=== PATIENT | male | born 2000 | race Caucasian/White ===

== ENCOUNTER 2024-12-06 06:44 | Emergency (ER) | payer MEDICAID, SELFPAY ==
--- NOTE | 2024-12-06 | ECG_ITS ---
Test Reason : CHEST PAIN Blood Pressure : */* mmHG Vent. Rate : 83 BPM Atrial Rate : 83 BPM P-R Int : 114 ms QRS Dur : 84 ms QT Int : 358 ms P-R-T Axes : 43 74 55 degrees QTcB Int : 420 ms Normal sinus rhythm with sinus arrhythmia Normal ECG When compared with ECG of 31-May-2019 23:08, No significant change was found Referred By: Generic ED Physician Electronically Signed By: CAROLINE BULL MD
[2024-12-06 07:15] VITALS: BP 133/89; PULSE 89; RESP 18; TEMP 36; O2SAT 98; BMI 35.5
[2024-12-06 07:46] LABS: MANUAL DIFF FLAG NO
[2024-12-06 07:48] LABS: Basophils Percent Auto 0.3 % (0-2); Eosinophils Absolute Auto 0.2 X10*3/uL (0.0-0.4); Eosinophils Percent Auto 1.8 % (0-4); Hematocrit 44.4 % (42.0-52.0); Hemoglobin 15.5 g/dl (14.0-18.0); Imm Gran Abs Auto 0.03 X10*3/uL (0.00-0.03); Imm Gran Pct Auto 0.3 % (0.0-0.4); Lymphocytes Absolute Auto 3.3 X10*3/uL (1.2-4.9); Lymphocytes Percent Auto 36.1 % (20-40); Mean Corpuscular HGB Conc 34.9 g/dl (31.0-36.0); Mean Corpuscular Hemoglobin 30.8 pg (27.0-33.0); Mean Corpuscular Volume 88.3 fL (80.0-98.0); Mean Platelet Volume 8.7 fL (9.4-12.4); Monocytes Absolute Auto 0.8 X10*3/uL (0.1-1.2); Monocytes Percent Auto 8.4 % (2-11); Neutrophils Absolute Auto 4.8 x10*3/uL (2.0-8.3); Neutrophils Percent Auto 53.1 % (45-73); Platelet Count 273 X10*3/uL (160-400); Red Blood Count 5.03 X10*6/uL (4.60-5.80); Red Cell Distribution Width 12.6 % (11.0-16.0)
--- OUTSIDE RECORDS SUMMARY | 2024-12-06 07:50 | XMS_ITS ---
Author Organization [facility] Address [address] [place], [place] [address] Care Team Providers Care Animal Care Technician Name Role Phone Amarjit Smith Primary Care Provider Alexa Valerio Unavailable [phone] REASON FOR VISIT office: f/u Medications Medication [...] Male Encounters Encounter Location Date Provider Diagnosis [address] [place], [place] [id number] 06/06/2024 Alexa Valerio Encounter for screening for COVID-19 Z11.52 Assessments Encounter Date Diagnosis (ICD Code) Assessment Notes Treatment Notes Treatment Clinical Notes 06/06/2024 Encounter for screening for COVID-19 [...] Notes * Calvin CARROLLDOB:2000 (24 yo M)Acc No.[id number]:06/06/2024 Progress Notes Patient:?Calvin CARROLL Provider:?JESUS Godfrey :2000???Age:23 Y???Sex:Male Stef e:06/06/2024 Address:[address] [place], [place] [address] Pcp:Amarjit Smith Subjective: * Chief Complaints: * ???1. Office: f/u. * HPI: ???General:? Symptom Screen: - Fever in the last [...] days? If so where and why?. * ROS:?No acute C/P no acute SOB, No problem with urine, No heartburn or abdominal pain. Endorses being able to climb one fight of stairs without stopping due to SOB, Mood: stable, appetite: good, sleeping well. Denies new skin rashes. * Medical History:? * Medications:?Taking BuPROPio n Hydrochloride XL 150 mg/24 hours tablet, extended [...] cap(s) orally once a day Objective: * Vitals:? Assessment: * Assessment: 1.?Encounter for screening f or COVID-19 - Z11.52 (Primary)??? Plan: * Treatment: * Images: Billing Information: * Visit Code:? * Procedure Codes:? Care Plan Details* * Electronic signature of Fermín Valerio on 12/06/2024 at 07:49 AM EST Sign off status: Pending * Provider:?JESUS Godfrey Date: ?06/06/2024 Generated for Aly engel/Constance/Ky on:?12/06/2024 07:49 AM EST
--- OUTSIDE RECORDS SUMMARY | 2024-12-06 07:50 | XMS_ITS ---
Author Organization [facility] Address [address], [place] [phone] Care Team Providers Care Laundry Operator Finishing Name Role Phone Amarjit Smith Primary Care Provider REASON FOR VISIT No Show Social History Sex Assigned At : Social History Observation Description Sex Assigned At Male Encounters Encounter Location Date Provider Diagnosis [facility] [address], [place] [phone] 08/17/2024 Amarjit Smith Plan Of Treatment No Information Progress Notes * Calvin BARRDOB:2000 (24 yo M)Acc No.[id number]:08/17/2024 Patient:?Calvin BARR :2000???Age:24 Y???Sex:Male Address:[address] [place] [address], [address], [place] [address] * true * Date:? Generated for Kevini maren/Constance/eTransmitting on:?12/06/2024 07:49 AM EST
--- OUTSIDE RECORDS SUMMARY | 2024-12-06 07:50 | XMS_ITS | Patient Health Record ---
Author Organization [facility] Address [address], [place] [phone] Care Team Providers Care Supervisor Transcribing Operators Name Role Phone Amarjit Smith Primary Care Provider [phone] Alexa Valerio Unavailable [phone] Allergies No Known Allergies Reason For Referral No Information Medications Medication SIG (Take, Route, Frequency, Duration) Notes Start Date End Date Status Abilify 10 mg 1 tab(s) orally once a day for 30 days Active cloNIDine 0.1 mg [...] once a day for 30 days Active Immunizations Vaccine Route Administration Date Status Comme nts Varicella Unknown 03/07/2021 Administered Social History Tobacco Use: Social History Observation [...] tobacco use and advised to quit: 06/24/2022 Problems Problem Type SNOMED Code ICD Code Onset Dates Problem Status W/U Status Risk Notes Problem Cocaine abuse with intoxication, unspecified (F14.129) Active confirmed Problem Tobacco user (256489014) Nicotine dependence, cigarettes, uncomplicated (F17.210) Active confirmed Problem Recurrent major depression in remission (23145452) Major depressive disorder, recurrent, in partial remission (F33.41) Active confirmed Problem Generalized anxiety disorder (93490762) Generalized anxiety disorder (F41.1) Active confirmed Problem Pervasive developmental disorder (disorder) (04384101) Autistic disorder (F84.0) Active confirmed Problem Attention deficit hyperactivity disorder, predominantly inattentive type (61681276) Attention-deficit hyperactivity disorder, predominantly inattentive type (F90.0) Active confirmed Problem Functional dyspepsia (1968501) Functional dyspepsia (K30) Active confirmed Problem Depression Screening (862368941) Encounter for screening for depression (Z13.31) Active confirmed Problem Body mass index 20-24 - normal (635318669) Body mass index [BMI] 22.0-22.9, adult (Z68.22) Active confirmed Problem Unsheltered homelessness (245878702899995) Unsheltered homelessness (Z59.02) Active confirmed Encounters Encounter Location Date Provider Diagnosis [facility] [address], [place] [phone] 04/30/2024 Amarjit Smith [facility] [address], [place] [phone] 08/17/2024 Amarjit Smith Assessments Encounter Date Diagnosis (ICD Code) Assessment Notes Treatment Notes Treatment Clinical Notes 06/06/2024 Other 08/17/2024 Other Plan Of Treatment No Information Insurance Providers Payer Name Payer Address Payer Phone Subscriber Number Group Number Insured Name Patient Relationship to Insured Coverage Start Date Coverage End Date [place] C3 [address] [place], [place] [id number] [phone] [id number] Calvin Barr - patient is the insured [place] [employer] [address] [place] [address] [phone] [id number] Momo, Calvin Self - patient is the insured 2 Medical (General) History Medical History History ICD Code Depression vs other Mood Disorder Anxiety Autism Cocaine abuse history Hospitalization History Reason Date(Month/Year) ER visits for CP and anxiety 02/22 Mental health - psych admits as a young teen, [facility] Respite see Hx
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
[2024-12-06 08:03] LABS: Alanine Aminotransferase 52 U/L (0-40); Albumin Level 4.4 g/dL (3.5-5.0); Alkaline Phosphatase 76 U/L (39-117); Anion Gap 11 (12-20); Aspartate Amino Transferase 26 U/L (5-37); Bilirubin Total 0.3 mg/dL (0.0-1.0); Blood Urea Nitrogen 13 mg/dL (9-16); Calcium 9.3 mg/dL (8.4-10.2); Carbon Dioxide 23 mmol/L (22-29); Chloride 109 mmol/L (96-108); Creatinine Clr Calc Pharmacy 208.1; Estimated Glomerular Filt Rate > 60; Glucose Random 112 mg/dL (60-115); Sodium 139 mmol/L (135-145); Total Protein 7.6 g/dL (6.5-8.0)
[2024-12-06 08:11] LABS: Troponin-I High Sensitivity < 2.7 ng/L (<3.5-35.0)
--- NOTE | 2024-12-06 08:32 | ED_ITS ---
HPI - Dental/Oral General Chief complaint: Dental/Oral Stated complaint: Dental Pain Time Seen by Provider: 12/06/24 07:42 Source: patient Mode of arrival: ambulatory Limitations: no limitations History of Present Illness ED Provider: DR. Curiel HPI Narrative: 24-year-old male otherwise healthy came in for evaluation of dental pain. Patient had a dental work on left upper 2nd molar tooth, filling and the crown fell off now patient is complaining of pain and left maxillary pain, no facial swelling, no fever, no chills, no drainage. Patient has been complaining of a intermittent left-sided chest pain for few months, no clear aggravating factor no clear relieving factor, not associated with exertion. Related Data Previous Rx's ?Medication ?Instructions ?Recorded amoxicillin 500 mg tablet 500 mg PO BID #14 tabs 12/06/24 Allergies Allergy/AdvReac Type Severity Reaction Status Date / Time No Known Allergies Allergy Verified 12/06/24 07:18 [No Known Allergies*] Review of Systems 2 Review of Systems: All other systems are reviewed and are negative Constitutional: Reports as per HPI and Reports no additional constitutional complaints Eyes: Reports as per HPI and Reports no additional eye complaints Reports system reviewed and no additional complaints, except as documented Cardiovascular: Reports as per HPI and Reports no additional cardiovascular complaints Respiratory: Reports as per HPI and Reports no additional respiratory complaints Gastrointestinal: Reports as per HPI and Reports no additional gastrointestinal complaints Genitourinary: Reports no additional female genitourinary complaints Musculoskeletal: Reports no additional musculoskeletal complaints Skin/Breast: Reports system reviewed and no additional complaints, except as docu Psychiatric: Reports no additional psychiatric complaints Endocrine: Reports no additional endocrine complaints Hematologic/Lymphatic: Reports no additional hematologic/lymphatic complaints Allergic/Immunologic: Reports no additional allergic/immunologic complaints Reports system reviewed and no additional complaints, except as documented and Reports Abnormal speech present [facility] Social History Social History Advance Directives: No Advance Directives Information Provided: Yes Physical Exam 2 Vital Signs: Vital Signs: Last Vital Signs Temp 96.8 F 12/06/24 07:15 Pulse 89 12/06/24 07:15 Resp 18 12/06/24 07:15 BP 133/89 12/06/24 07:15 Pulse Ox 98 12/06/24 07:15 O2 Del Method Room Air 12/06/24 07:15 BMI result Body Mass Index 35.5 Vital signs have been reviewed and appear to be correct. Blood pressure elevated. Heart rate normal. Respiratory rate normal. Temperature normal. Oxygen saturation normal. Appearance: Alert. Oriented X3. No acute distress. Head: Normal external exam. Normocephalic. Atraumatic. No Zhu signs noted. No raccoon eyes noted. Dental exam: Left upper 2nd molar tooth decay, tenderness over the tooth, gum around the tooth is nontender, no fluctuation, no discharge. Eyes: PERRLA. EOMI. Conjunctiva and sclera normal. Eyelids normal. ENT: TM's Normal. Pharynx normal. Uvula midline. Moist mucous membranes. No trismus noted. No drooling noted. No muffled voice noted. Neck: Normal inspection. Neck supple. FROM. No adenopathy. Thyroid Normal. No meningeal signs. No neck mass noted. CVS: Normal heart rate and rhythm. Heart sound normal. No murmurs noted. Pulses normal throughout. Respiratory: No respiratory distress. Painless inspiration. Breath sounds normal. No wheezes/rales/rhonchi noted. Chest nontender. No accessory muscle usage noted or decreased air movement noted. Abdomen: Soft and nontender. Bowel sounds normal in all 4 quadrants. No distention noted. No organomegaly noted. No visible injury noted. Back: No CVA tenderness. Full range of motion noted. Skin: Skin warm and dry. Normal skin color. Normal skin turgor. No rashes/lesions/lacerations noted. Extremities: No lower extremity edema. Extremities exhibit normal range of motion. Extremities nontender. Neuro: Oriented X 3. Cranial nerve exam: II-XII are grossly intact No motor deficit. No sensory deficit. Reflexes normal. Course Reevaluation(s) Reevaluation #1: Dental infection with no abscess or facial cellulitis. Will start on amoxicillin. Chest pain, patient with HEART SCORE OF 0. Time: 08:37 Medical Decision Making Differential Diagnosis Differential Diagnoses: The differential diagnosis associated with the presentation includes (ACS, dental infection, dental abscess, facial cellulitis.) Admission/Observation Consideration of admission/observation: Escalation of care including admission/observation considered Lab Data MDM Lab Attestation statement: I reviewed the patient's lab results. 12/06/24 07:40 12/06/24 07:40 Labs: Lab Results 12/06/24 Range/Units 07:40 WBC 9.0 (4.8-10.8) X10*3/uL RBC 5.03 (4.60-5.80) X10*6/uL Hgb 15.5 (14.0-18.0) g/dl Hct 44.4 (42.0-52.0) % MCV 88.3 (80.0-98.0) fL MCH 30.8 (27.0-33.0) pg MCHC 34.9 (31.0-36.0) g/dl RDW 12.6 (11.0-16.0) % Plt Count 273 (160-400) X10*3/uL MPV 8.7 L (9.4-12.4) fL Immature Gran % (Auto) 0.3 (0.0-0.4) % Neut % (Auto) 53.1 (45-73) % Lymph % (Auto) 36.1 (20-40) % Bremer % (Auto) 8.4 (2-11) % Eos % (Auto) 1.8 (0-4) % Baso % (Auto) 0.3 (0-2) % Lymph # (Auto) 3.3 (1.2-4.9) X10*3/uL Bremer # (Auto) 0.8 (0.1-1.2) X10*3/uL Eos # (Auto) 0.2 (0.0-0.4) X10*3/uL Baso # (Auto) 0.0 (0.0-0.2) X10*3/uL Abs Immat Gran (auto) 0.03 (0.00-0.03) X10*3/uL Absolute Neuts (auto) 4.8 (2.0-8.3) x10*3/uL Absolute Nucleated RBC 0.000 (0.0-0.012) X10*3/uL Nucleated RBC % (auto) 0.0 (0.0-0.2) /100WBC Sodium 139 (135-145) mmol/L Potassium 4.0 (3.3-5.1) mmol/L Chloride 109 H (96-108) mmol/L Carbon Dioxide 23 (22-29) mmol/L Anion Gap 11 L (12-20) BUN 13 (9-16) mg/dL Creatinine 0.82 (0.5-1.4) mg/dL Estim Creat Clear Calc 208.1 Estimated GFR > 60 Random Glucose 112 (60-115) mg/dL Calcium 9.3 (8.4-10.2) mg/dL Total Bilirubin 0.3 (0.0-1.0) mg/dL AST 26 (5-37) U/L ALT 52 H (0-40) U/L Alkaline Phosphatase 76 (39-117) U/L Troponin I High Sens < 2.7 (<3.5-35.0) ng/L Total Protein 7.6 (6.5-8.0) g/dL Albumin 4.4 (3.5-5.0) g/dL Discharge Plan Discharge Clinical Impression: Toothache, Dental infection, Non-cardiac chest pain Patient Disposition: Home, Self-Care Instructions: Chest Pain (ED), Toothache (ED) Additional Instructions: Please contact your dentist and make an appointment. Prescriptions: New amoxicillin 500 mg tablet 500 mg PO BID Qty: 14 0RF Print Language: Faroese
[2024-12-06 09:05] VITALS: BP 133/89; PULSE 89; RESP 18; TEMP 36; O2SAT 98
[2024-12-06] MEDS: Amoxicillin 500 MG CAPSULE PO (09:06)
== END 2024-12-06 09:10 | disposition home or self-care (01) ==
PROVIDERS: Emergency Provider Emergency Medicine
DX: K04.7 Periapical abscess without sinus (principal); R07.89 Other chest pain
CPT/HCPCS: 36415; 80053; 84484; 85025; 93005; 99282; 99283

== ENCOUNTER → 2024-12-06 07:35 | Outpatient (BNV) | payer MEDICAID, SELFPAY | PROVIDERS: Emergency Provider Emergency Medicine; Visit Provider Internal Medicine Cardiovascular Disease | DX: R07.9 Chest pain, unspecified (principal) | CPT/HCPCS: 93010 ==

== ENCOUNTER 2024-12-26 07:31 | Emergency (ER) | payer MEDICAID, SELFPAY ==
--- NOTE | ~2024-12-26 | XR_ITS ---
EXAMINATION: XR CHEST CLINICAL INFORMATION: chest pain COMPARISON: None available. TECHNIQUE: 2 views of the chest were obtained. FINDINGS: No consolidation, pleural effusion or pneumothorax. No hyperinflation. Cardiomediastinal silhouette is normal. Osseous structures are intact. XR/XR chest 2V IMPRESSION: No acute airspace disease. Electronically signed by: Tommy Angelo MD 12/26/2024 08:00 AM EDT
--- NOTE | 2024-12-26 07:37 | ECG_ITS ---
Test Reason : CHEST PAIN Blood Pressure : */* mmHG Vent. Rate : 111 BPM Atrial Rate : 111 BPM P-R Int : 136 ms QRS Dur : 92 ms QT Int : 326 ms P-R-T Axes : 52 91 38 degrees QTcB Int : 443 ms Sinus tachycardia Rightward axis Possible Anterior infarct , age undetermined Abnormal ECG When compared with ECG of 06-Dec-2024 07:35, No significant change was found Referred By: Belinda Mayo Electronically Signed By: CAROLINE BULL MD
[2024-12-26 07:39] VITALS: BP 155/97; PULSE 127; O2SAT 96
[2024-12-26 07:44] VITALS: BP 149/94; PULSE 109; RESP 20; TEMP 36.5; O2SAT 99; BMI 32.9
--- NOTE | 2024-12-26 07:55 | ED_ITS ---
HPI - Chest Pain General Chief Complaint: Dizziness Stated Complaint: stabbing chest pain, pt feels poss panic attack Time Seen by Provider: 12/26/24 07:33 Source: patient and old records reviewed Mode of arrival: ambulatory Limitations: no limitations History of Present Illness ED Provider: MEÑO VÁSQUEZ narrative: 24 yo male with PMH of anxiety who takes no medications but has smoked cigarettes for 10 years he comes in today reporting many months of intermittent sharp left chest pain that happens at rest. Not fully related to exertion. He denies travel/procedures. He has no fevers or cough. This AM it happened again when drinking coffee. He felt palpitations, dizzy and the pain. He has no known CAD or VTE. He takes nothing for anxiety and manages it at home. He has not gone to the doctor for this in the past. MD complaint: chest pain Onset (ago): month(s) Timing of current episode: episodic Prior episodes: Yes Onset: during rest Pain location: substernal Pain radiation: none Severity: moderate Quality: sharp and shooting Relieving factors: nothing Exacerbating factors: nothing Context: other Associated symptoms: palpitations Treatment prior to arrival: none Related Data Previous Rx's ?Medication ?Instructions ?Recorded amoxicillin 500 mg tablet 500 mg PO BID #14 tabs 12/06/24 Allergies Allergy/AdvReac Type Severity Reaction Status Date / Time No Known Allergies Allergy Verified 12/26/24 07:48 [No Known Allergies*] Review of Systems 2 Review of Systems: Constitutional : No Weight loss, No Fever, No Chills ENT/Mouth : No sore throat, No Rhinorrhea Eyes: No Eye Pain, No Swelling Cardiovascular : pos Chest Pain, no SOB, no Dyspnea on Exertion, No Orthopnea, No Edema, pos Palpitations Respiratory : No Cough, No Sputum Gastrointestinal : no Nausea, No Vomiting, No Diarrhea, No abdominal Pain, No Hematochezia, No Melena Genitourinary : No Dysuria, No Urinary Frequency Musculoskeletal : No joint pain, No Myalgias, No Joint Swelling Skin : No Skin Lesions, No rash Neuro : No Weakness, No Numbness, pos Dizziness, No Headache Psych : No Anxiety/Panic, No Depression Heme/Lymph: No Bruising, No Lymphadenopathy Endocrine : No Polyuria, No Polydipsia All other systems reviewed and are negative PMFSH Past Medical History Attestation statement: The following information was validated with the patient. Source: old records reviewed Medical History Anxiety Social History Social History (Updated 12/26/24 @ 07:58 by Belinda Mayo DO) Patient Tobacco Use Status: Current everyday Tobacco user Smoked in Last 30 Days: Yes Use of substances other than those prescribed or required for medical reasons: No Advance Directives: No Advance Directives Information Provided: Yes Physical Exam 2 Vital Signs: Vital Signs: Last Vital Signs Temp 97.7 F 12/26/24 07:44 Pulse 109 H 12/26/24 07:44 Resp 20 12/26/24 07:44 BP 149/94 H 12/26/24 07:44 Pulse Ox 99 12/26/24 07:44 O2 Del Method Room Air 12/26/24 07:44 BMI result Body Mass Index 32.9 Appearance: Alert. Oriented X3. No acute distress. Eyes: Pupils equal, round and reactive to light. ENT: Pharynx normal. Neck: Normal inspection. Neck supple. CVS: tachycardic heart rate and rhythm. Pulses normal. Respiratory: No respiratory distress. Breath sounds normal. Abdomen: Soft and nontender. Skin: Skin warm and dry. Normal skin color. Normal skin turgor. Extremities: No lower extremity edema. No calf ttp Neuro: Oriented X 3. No motor deficit. No sensory deficit. CN2-12 intact Medications Administered Discontinued Medications Generic Name Dose Route Start Last Admin Trade Name Dannyq PRN Reason Stop Dose Admin Acetaminophen 650 mg 12/26/24 08:26 12/26/24 08:45 Acetaminophen 325 Mg Tablet PO 12/26/24 08:27 650 mg ONCE ONE Administration Medical Decision Making Medical Decision Making MDM Narrative: 24 yo male with PMH of anxiety here with c/o sharp left chest pain but no associated dyspnea - he c/o palpitations, dizziness as well. At this time he has no hx of CAD or VTE. He has had this on and off for months doubt dissection. Will obtain basic labs, lytes, trop x 1, ddimer and CXR. Suspect atypical chest pain, anxiety, low prob VTE, low susp for ACS, no preceding viral illness to suggest endocarditis. He has had chronic tooth pain and cleared by dentist who gives him amoxicillin clinically on exam no signs of infection, no IVDA Differential Diagnosis Differential Diagnoses: The differential diagnosis associated with the presentation includes atypical chest pain, anxiety, pericarditis, low prob VTE Admission/Observation Consideration of admission/observation: Escalation of care including admission/observation considered ddimer negative, trop flat, CXR negative at this time stable for DC Lab Data [facility] Lab Attestation statement: I reviewed the patient's lab results. 12/26/24 08:03 12/26/24 08:03 Labs: Lab Results 12/26/24 Range/Units 08:03 WBC 10.8 (4.8-10.8) X10*3/uL RBC 4.98 (4.60-5.80) X10*6/uL Hgb 15.3 (14.0-18.0) g/dl Hct 43.7 (42.0-52.0) % MCV 87.8 (80.0-98.0) fL MCH 30.7 (27.0-33.0) pg MCHC 35.0 (31.0-36.0) g/dl RDW 12.7 (11.0-16.0) % Plt Count 284 (160-400) X10*3/uL MPV 8.8 L (9.4-12.4) fL Immature Gran % (Auto) 0.4 (0.0-0.4) % Neut % (Auto) 56.9 (45-73) % Lymph % (Auto) 32.3 (20-40) % Mcdonough % (Auto) 8.4 (2-11) % Eos % (Auto) 1.7 (0-4) % Baso % (Auto) 0.3 (0-2) % Lymph # (Auto) 3.5 (1.2-4.9) X10*3/uL Mcdonough # (Auto) 0.9 (0.1-1.2) X10*3/uL Eos # (Auto) 0.2 (0.0-0.4) X10*3/uL Baso # (Auto) 0.0 (0.0-0.2) X10*3/uL Abs Immat Gran (auto) 0.04 H (0.00-0.03) X10*3/uL Absolute Neuts (auto) 6.1 (2.0-8.3) x10*3/uL Absolute Nucleated RBC 0.000 (0.0-0.012) X10*3/uL Nucleated RBC % (auto) 0.0 (0.0-0.2) /100WBC D-Dimer High Sensitivty < 150 NG/ML Sodium 139 (135-145) mmol/L Potassium 4.1 (3.3-5.1) mmol/L Chloride 109 H (96-108) mmol/L Carbon Dioxide 24 (22-29) mmol/L Anion Gap 10 L (12-20) BUN 13 (9-16) mg/dL Creatinine 0.96 (0.5-1.4) mg/dL Estim Creat Clear Calc 171.1 Estimated GFR > 60 Random Glucose 122 H (60-115) mg/dL Calcium 9.2 (8.4-10.2) mg/dL Magnesium 1.9 (1.6-2.6) mg/dL Total Bilirubin 0.5 (0.0-1.0) mg/dL Direct Bilirubin 0.1 (0.0-0.5) mg/dL AST 28 (5-37) U/L ALT 53 H (0-40) U/L Alkaline Phosphatase 70 (39-117) U/L Troponin I High Sens < 2.7 (<3.5-35.0) ng/L Total Protein 7.4 (6.5-8.0) g/dL Albumin 4.4 (3.5-5.0) g/dL Lipase 18 (8-78) U/L Independent Interpretation I performed an independent interpretation of an: EKG and Plain X-Ray (normal ) Interpretation: Rate: 111 Rhythm: sinus tach [place]: rightward Normal P waves. Normal ZEV. Normal QRS complex. ST T wave : no DONALDO, normal qTC: 443 prior studies: no acute ischemia The study has been interpreted contemporaneously by me. . Radiology Impression Discussion of test interpretation with radiology: I have reviewed the radiologist's reading. Independent Historian Clinical information obtained from an independent historian. History obtained from or confirmed by: EMS Prescription Management I considered prescription management with: Other Discharge Plan Discharge Clinical Impression: Atypical chest pain Patient Disposition: Home, Self-Care Instructions: Chest Pain (ED) Additional Instructions: labs reassuring heart tests normal ddimer normal no signs of clot chest xray normal rest and stay hydrated please follow up with a primary care doctor continue to try to quit smoking Prescriptions: No Action amoxicillin 500 mg tablet 500 mg PO BID Qty: 14 0RF Stand Alone Forms: Work/School Release Print Language: Thai
[2024-12-26 08:11] LABS: MANUAL DIFF FLAG NO
[2024-12-26 08:14] LABS: Basophils Percent Auto 0.3 % (0-2); Eosinophils Absolute Auto 0.2 X10*3/uL (0.0-0.4); Eosinophils Percent Auto 1.7 % (0-4); Hematocrit 43.7 % (42.0-52.0); Hemoglobin 15.3 g/dl (14.0-18.0); Imm Gran Abs Auto 0.04 X10*3/uL (0.00-0.03); Imm Gran Pct Auto 0.4 % (0.0-0.4); Lymphocytes Absolute Auto 3.5 X10*3/uL (1.2-4.9); Lymphocytes Percent Auto 32.3 % (20-40); Mean Corpuscular Hemoglobin 30.7 pg (27.0-33.0); Mean Corpuscular Volume 87.8 fL (80.0-98.0); Mean Platelet Volume 8.8 fL (9.4-12.4); Monocytes Absolute Auto 0.9 X10*3/uL (0.1-1.2); Monocytes Percent Auto 8.4 % (2-11); Neutrophils Absolute Auto 6.1 x10*3/uL (2.0-8.3); Neutrophils Percent Auto 56.9 % (45-73); Platelet Count 284 X10*3/uL (160-400); Red Blood Count 4.98 X10*6/uL (4.60-5.80); Red Cell Distribution Width 12.7 % (11.0-16.0); White Blood Count 10.8 X10*3/uL (4.8-10.8)
[2024-12-26 08:23] LABS: D Dimer High Sensitivity < 150 NG/ML
[2024-12-26 08:33] LABS: Alanine Aminotransferase 53 U/L (0-40); Albumin Level 4.4 g/dL (3.5-5.0); Alkaline Phosphatase 70 U/L (39-117); Anion Gap 10 (12-20); Aspartate Amino Transferase 28 U/L (5-37); Bilirubin Direct 0.1 mg/dL (0.0-0.5); Bilirubin Total 0.5 mg/dL (0.0-1.0); Blood Urea Nitrogen 13 mg/dL (9-16); Calcium 9.2 mg/dL (8.4-10.2); Carbon Dioxide 24 mmol/L (22-29); Chloride 109 mmol/L (96-108); Creatinine Clr Calc Pharmacy 171.1; Estimated Glomerular Filt Rate > 60; Glucose Random 122 mg/dL (60-115); Lipase 18 U/L (8-78); Magnesium 1.9 mg/dL (1.6-2.6); Potassium 4.1 mmol/L (3.3-5.1); Sodium 139 mmol/L (135-145); Total Protein 7.4 g/dL (6.5-8.0)
[2024-12-26] MEDS: Acetaminophen 325 MG TABLET 650 MG PO (08:45)
[2024-12-26 08:47] LABS: Troponin-I High Sensitivity < 2.7 ng/L (<3.5-35.0)
[2024-12-26 09:23] VITALS: BP 149/94; PULSE 109; RESP 20; TEMP 36.5; O2SAT 99
== END 2024-12-26 09:25 | disposition home or self-care (01) ==
PROVIDERS: Emergency Provider Emergency Medicine
DX: R07.89 Other chest pain (principal); F17.210 Nicotine dependence, cigarettes, uncomplicated
CPT/HCPCS: 36415; 71046; 80048; 80076; 83690; 83735; 84484; 85025; 85379; 93005; 99283; 99284

== ENCOUNTER → 2024-12-26 07:37 | Outpatient (BNV) | payer MEDICAID, SELFPAY | PROVIDERS: Emergency Provider Emergency Medicine; Visit Provider Internal Medicine Cardiovascular Disease | DX: R00.0 Tachycardia, unspecified (principal) | CPT/HCPCS: 93010 ==

== ENCOUNTER → 2024-12-26 07:46 | Outpatient (BNV) | payer MEDICAID, SELFPAY | PROVIDERS: Emergency Provider Emergency Medicine; Visit Provider Radiology Diagnostic Radiology | DX: R07.9 Chest pain, unspecified (principal) | CPT/HCPCS: 71046 ==

== ENCOUNTER 2025-01-23 09:08 | Emergency (ER) | payer MEDICAID, SELFPAY ==
--- NOTE | ~2025-01-23 | CT_ITS ---
EXAMINATION: CT HEAD WITHOUT CONTRAST CLINICAL INFORMATION: Severe right-sided headache. COMPARISON: None available. TECHNIQUE: Contiguous axial imaging was performed from the skull base to vertex without intravenous administration of contrast. This CT examination was performed using dose optimization techniques as appropriate, variously including the following: *Automated exposure control *Adjustment of mA and/or kV according to patient size (this includes techniques or standardized protocols for targeted exams where dose is matched to indication/reason for exam; i.e. extremities or head) *Use of iterative reconstruction technique FINDINGS: There is no evidence of intracranial hemorrhage or extra-axial fluid collection. There is no mass effect, or edema. No CT evidence of acute territorial infarct. Ventricles, sulci, and cisterns are normal in size and configuration for patient age. No hydrocephalus. No midline shift. Negative hyperdense MCA sign. Negative insular ribbon sign. No white matter abnormalities. Normal pituitary. Globes and orbital contents image normally. No extracranial soft tissue abnormalities. The paranasal sinuses, mastoid air cells, and tympanic cavities are normally aerated. No suspicious bony abnormalities. There are no acute fractures evident. CT/CT head/brain wo IV con IMPRESSION: No acute intracranial abnormality. Normal examination. Electronically signed by: Calvin Valle MD 01/23/2025 10:30 AM EDT
[2025-01-23 09:12] VITALS: BP 152/90; PULSE 97; O2SAT 100
[2025-01-23 09:14] VITALS: BP 137/87; PULSE 80; RESP 18; TEMP 36.9; O2SAT 95; BMI 33.2
--- NOTE | 2025-01-23 09:32 | ED_ITS ---
HPI - General Adult General Chief complaint: Headache Stated complaint: R SIDED ZULETA X1H PER EMS Time Seen by Provider: 01/23/25 09:32 Source: patient, EMS, RN notes reviewed and old records reviewed Mode of arrival: EMS Limitations: no limitations History of Present Illness ED Provider: Kim HPI narrative: Patient is a 24-year-old male with history of anxiety presenting to the emergenc y department with complaint of severe right-sided headache which began approximately an hour and a half prior to arrival. States that he worked an overnight shift last night, has not slept yet. Was going to take ibuprofen at home but EMS advised against this. Associated photophobia. Denies blurred vision, double vision or other visual changes. Denies nausea or vomiting. Denies any neck or back pain. Denies history of chronic headaches or migraines. Denies fall or other trauma. He is not anticoagulated. complaint: Headache Onset (ago): hour(s) Location: head Radiation: non-radiation Severity: severe Severity scale (1-10): 10 Quality: aching Related Data Previous Rx's ?Medication ?Instructions ?Recorded amoxicillin 500 mg tablet 500 mg PO BID #14 tabs 12/06/24 Allergies Allergy/AdvReac Type Severity Reaction Status Date / Time No Known Allergies Allergy Verified 01/23/25 09:20 [No Known Allergies*] Review of Systems Review of Systems: As per HPI Yes all other systems are reviewed and are negative Constitutional: Constitutional: Reports as per HPI [facility] Past Medical History Medical History Anxiety Social History Social History (Updated 12/26/24 @ 07:58 by Belinda Mayo DO) Patient Tobacco Use Status: Current everyday Tobacco user Do you have a plan to hurt others: No Plan Physical Exam ED Vital Signs: Vital Signs - 24 hr 01/23/25 09:14 01/23/25 12:27 Temperature 98.4 F 97.9 F Pulse Rate 80 84 Respiratory Rate 18 14 Blood Pressure 137/87 123/79 Pulse Oximetry 95 96 Oxygen Delivery Method Room Air Room Air BMI result Body Mass Index 33.2 Vital signs have been reviewed and appear to be correct. Blood pressure normal. Heart rate normal. Respiratory rate normal. Temperature normal. Oxygen saturation normal. Const General: cooperative, healthy appearing and no acute distress Orientation/consciousness: oriented to person, oriented to place, oriented to time and patient oriented x3 Limitations: no limitations HENMT Head: Yes normocephalic and Yes atraumatic Ears: external ears normal General nose exam: Normal external nose present Face and sinus: Yes face symmetric Mouth: oropharynx normal and moist mucous membranes Throat: Yes uvula midline Eyes Pupils: Equal, round and reactive pupils present EOM: EOMs intact bilaterally Neck Neck: Yes normal visual inspection and Yes supple Resp Effort & Inspection: normal respiratory effort and able to speak in complete sentences Auscultation: clear to auscultation bilaterally Cardio Rate: regular rate Rhythm: regular rhythm Heart sounds: S1 normal heart sound present and S2 normal heart sound present GI Palpation (GI): Soft to palpation and nontender Auscultation: normoactive bowel sounds General: Yes no CVA tenderness Back/Spine/Pelvis Back: no CVA tenderness Skin General skin exam: elasticity normal and turgor normal Neuro General: oriented to person, oriented to place, oriented to time, patient oriented x3, gait normal, tone normal, moves all extremities, Normal light touch and pain sensation, no focal motor deficits, CN's II-XI intact bilaterally and deep tendon reflexes 2+ bilaterally Cranial nerves: Yes Equal, round and reactive pupils present Cognition (Neuro): normal cognition Motor exam (neuro): 5/5 motor strength present throughout, Normal motor muscle tone present throughout and Motor abnormalities not present Extrem General: Yes full ROM, Yes no pedal edema and Yes no calf tenderness Psych Mental Status: mental status grossly normal Affect: normal affect Thought process: Normal thought process present Medications Administered Discontinued Medications Generic Name Dose Route Start Last Admin Trade Name Fanny PRN Reason Stop Dose Admin Diphenhydramine HCl 25 mg 01/23/25 09:35 01/23/25 09:54 Diphenhydramine Hcl 50 Mg/Ml Vial IVPUSH 01/23/25 09:36 25 mg ONCE ONE Administration Sodium Chloride 1,000 mls @ 999 mls/hr 01/23/25 09:45 01/23/25 09:54 Ns IV 01/23/25 10:45 999 mls/hr .Q1H1M JOSE DAVID Administration Ketorolac Tromethamine 15 mg 01/23/25 09:35 01/23/25 09:54 Ketorolac Tromethamine 15 Mg/Ml Vial IVPUSH 01/23/25 09:36 15 mg ONCE ONE Administration Metoclopramide HCl 10 mg 01/23/25 09:35 01/23/25 09:54 Metoclopramide Hcl 10 Mg/2 Ml Vial IVPUSH 01/23/25 09:36 10 mg ONCE ONE Administration Medical Decision Making Medical Decision Making [facility] Narrative: Patient is a 24-year-old male with history of anxiety presenting to the emergency department with complaint of severe right-sided headache which began approximately an hour and a half prior to arrival. On exam patient is awake, A+Ox3, VS WNL, afebrile, normal neurological exam without focal deficits, physical exam findings as above. Given reported symptoms and physical exam findings, initial differential includes but is not limited to tension headache, migraine. Do not suspect ICH/SAH, acute glaucoma, carotid artery dissection, CO poisoning, encephalitis, meningitis, preeclampsia, pseudotumor, temporal arteritis/giant cell arteritis. Given that patient denies history of headaches in the past will obtain CT head. CT notable for no acute abnormalities. My interpretation is in agreement with the radiologist's interpretation. Results discussed with patient and all questions answered. Patient reports improvement in pain after receiving medications in the ED. advised he continue using Tylenol, ibuprofen, Excedrin, etc. as needed for headache at home. Follow up with primary care provider as needed. Return precautions discussed at bedside. Patient verbalized understanding of and agreement with plan. Differential Diagnosis Differential Diagnoses: The differential diagnosis associated with the presentation includes As per [facility] Admission/Observation Consideration of admission/observation: Escalation of care including admission/observation considered Patient would have been admitted to the hospital had their work up had any findings where hospital admission was appropriate and their clinical presentation warranted hospital admission. Independent Interpretation I performed an independent interpretation of an: CT Scan Interpretation: No acute abnormalities CT head. Radiology Impression Discussion of test interpretation with radiology: I have reviewed the radiologist's reading. Radiologist Impression: CT/CT head/brain wo IV con IMPRESSION: No acute intracranial abnormality. Normal examination. External Record Review External record reviewed: Inpatient record, Office record and Outpatient record Discharge Plan Discharge Clinical Impression: Headache Patient Disposition: Home, Self-Care Instructions: Acute Headache (DC) Additional Instructions: You have been evaluated in the emergency department today for headache. Your evaluation did not show evidence of medical conditions requiring emergent intervention at this time, and your pain improved with medication in the ED. We recommend you take 600 mg ibuprofen every 6 hours or Tylenol 650 mg every 6 hours as needed for pain. If needed, you can alternate these medications so that you take 1 medication every 3 hours. For instance, at noon take ibuprofen, then at 3:00 p.m. take Tylenol, then at 6:00 p.m. take ibuprofen. Please follow-up with your primary care provider within 2 days. Return to the emergency department if you experience worsening or uncontrolled pain, vision changes, recurrent vomiting, difficulty with normal activities, abnormal behavior, difficulty walking, numbness, weakness, or any other concerning symptoms. Prescriptions: No Action amoxicillin 500 mg tablet 500 mg PO BID Qty: 14 0RF Print Language: Spanish
[2025-01-23] MEDS: Metoclopramide HCl 10 MG/2 ML VIAL IVPUSH (09:54)
[2025-01-23] MEDS: diphenhydrAMINE HCL 50 MG/ML VIAL 25 MG IVPUSH (09:54)
[2025-01-23] MEDS: Ketorolac Tromethamine 15 MG/ML VIAL IVPUSH (09:54)
[2025-01-23] MEDS: 0.9 % Sodium Chloride 1,000 ML 999 ML IV (09:54)
--- NOTE | 2025-01-23 10:00 | PC.NURSE ---
IV established, medicated per the MAR with fluids infusing. in ct scan
--- NOTE | 2025-01-23 12:15 | PC.NURSE ---
patient appears to be sleeping at this time with even and unlabored respirations
[2025-01-23 12:27] VITALS: BP 123/79; PULSE 84; RESP 14; TEMP 36.6; O2SAT 96
[2025-01-23 12:45] VITALS: BP 123/79; PULSE 84; RESP 14; TEMP 36.6; O2SAT 96
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
--- OUTSIDE RECORDS SUMMARY | 2025-01-23 14:59 | XMS_ITS ---
Author Organization [facility] Address [address], [place] [id number] Care Team Providers Care Aircraft Restorer Name Role Phone Amarjit Smith Primary Care Provider Alexa Valerio Unavailable [phone] REASON FOR VISIT office: f/u Medications Medication [...] Male Encounters Encounter Location Date Provider Diagnosis [address] [place], [place] [phone] 06/06/2024 Alexa Valerio Encounter for screening for [...] Notes * Calvin CARROLLDOB:2000 (24 yo M)Acc No.[id number]:06/06/2024 Progress Notes Patient:?Calvin CARROLL Provider:?JESUS Godfrey :2000???Age:23 Y???Sex:Male Stef e:06/06/2024 Address:[address] [place], [place] [phone] Pcp:Amarjit Smith Subjective: * Chief Complaints: * [...] * Electronic signature of Fermín Valerio on 01/23/2025 at 02:58 PM EDT Sign off status: Pending * Provider:?JESUS Godfrey Date: ?06/06/2024 Generated for Aly engel/Constance/Ky on:?01/23/2025 02:58 PM EDT
== END 2025-01-23 12:46 | disposition home or self-care (01) ==
PROVIDERS: Emergency Provider Emergency Medicine
DX: R51.9 Headache, unspecified (principal)
CPT/HCPCS: 70450; 96374; 96375; 99284; 99285; J1200; J1885; J2765

== ENCOUNTER → 2025-01-23 09:35 | Outpatient (BNV) | payer MEDICAID, SELFPAY | PROVIDERS: Emergency Provider Emergency Medicine; Visit Provider Radiology Diagnostic Radiology | DX: R51.9 Headache, unspecified (principal) | CPT/HCPCS: 70450 ==

== ENCOUNTER 2025-01-27 06:47 | Emergency (ER) | payer MEDICAID, SELFPAY ==
[2025-01-27 06:50] VITALS: BP 148/103; PULSE 100; RESP 19; TEMP 36.6; O2SAT 96; BMI 31.7
--- NOTE | 2025-01-27 08:50 | ED_ITS ---
HPI - Headache General Chief Complaint: Headache Stated Complaint: headache with pressure Time Seen by Provider: 01/27/25 08:02 Source: patient Mode of arrival: ambulatory Limitations: no limitations History of Present Illness ED Provider: terrence storey np HPI Narrative: Patient is a 24-year-old male who presents emergency department for evaluation of a right posterior headache. He reports onset 3-4 days ago. States he came to the emergency department had a head CT done which showed no abnormal findings. He has tried Tylenol at home but his symptoms have persisted which prompted his return today. He denies any precipitating injury. Denies any history of migraine headaches. He also states that he has experienced pain to a few of his right upper molars. He has been told in the past from dental providers that there are numerous cavities he unfortunately has not however had any recent appointment to address these. Denies any swelling to the face, foul taste in the mouth. Denies any red flag symptoms including fevers, chills, neck stiffness, malaise, aphasia, weakness, poor coordination, descriptors such as ?the worst headache ever ?or ?thunderclap?, or painful temporal region. Denies dizziness, lightheadedness, vision changes, URI symptoms, chest pain, shortness of breath, numbness or tingling of the extremities. Related Data Previous Rx's ?Medication ?Instructions ?Recorded amoxicillin 500 mg tablet 500 mg PO BID #14 tabs 12/06/24 ibuprofen 600 mg tablet 600 mg PO Q8H PRN pain #30 tabs 01/27/25 Allergies Allergy/AdvReac Type Severity Reaction Status Date / Time No Known Allergies Allergy Verified 01/27/25 06:52 [No Known Allergies*] Review of Systems Review of Systems: Yes all other systems are reviewed and are negative [facility] Past Medical History Attestation statement: The following information was validated with the patient. Source: old records reviewed Medical History Anxiety Social History Social History (Updated 12/26/24 @ 07:58 by Belinda Mayo DO) Patient Tobacco Use Status: Current everyday Tobacco user Advance Directives: No Advance Directives Information Provided: No Do you have a plan to hurt others: No Plan Physical Exam Vital Signs: Vital Signs: Last Vital Signs Temp 98 F 01/27/25 06:50 Pulse 100 04/27/25 06:50 Resp 19 01/27/25 06:50 BP 148/103 H 01/27/25 06:50 Pulse Ox 96 01/27/25 06:50 O2 Del Method Room Air 01/27/25 06:50 BMI result Body Mass Index 31.7 Appearance: Alert.?Oriented to person, place and time. No acute distress.?Normal affect. Head: Normocephalic, atraumatic Eyes: Pupils equal, round and reactive to light. EOMI. No nystagmus. No ptosis. No tenderness to palpation over the temporal region. ENT: External auditory canal normal tympanic membrane pearly ayala and intact bilaterally. Oropharynx normal. Neck: Normal inspection.? Neck supple. No nuchal rigidity. CVS: Heart sounds normal. Normal heart rate and rhythm.? Pulses normal.?? Respiratory: No respiratory distress.? Lung sounds clear to auscultation bilaterally?? Abdomen: Soft and non-tender. Normoactive bowel sounds. ?? Skin: Skin warm and dry.? Normal skin color.? ?? Extremities: No lower extremity edema.? Neuro: Moves all extremities spontaneously. Sensation intact bilaterally. CN II- XII intact. No focal neuro deficits. Ambulatory with steady gait. Course Reevaluation(s) Reevaluation #1: Patient with a history of recurrent and or similar headache, there is no substantial change to typical headache pattern, there are no red flag symptoms, no focal neurological deficits, no high risk comorbidities, at this time feel that patient is stable for discharge home Medical Decision Making Medical Decision Making MDM Narrative: Patient is a 24-year-old male who presents emergency department for evaluation of a right parietal/occipital headache. Intermittent in nature over the past [address] 01/23/2025 in this emergency department without acute intracranial pathology. No injury. Has no focal neurological deficits. No indication for repeat CT imaging at this time. Low suspicion of ICH, [employer] TI[employer] mass unlikely given recent negative imaging, no nuchal rigidity to suggest meningitis, may possibly have new onset of migraines versus tension headache. Your red flag symptoms, immuno compromising conditions your vision changes. He does endorse having dental pain, has multiple dental caries on examination. There is no erythema, or swelling to the gingiva, no apparent abscess, no hot or cold intolerance. No apparent sign of infection at this time that would warrant antibiotics. Sinus tenderness upon palpation. Thus far he has tried acetaminophen without much improvement. I advised the use of an NSAID, outpatient follow-up with primary care doctor as well as dental provider. Differential Diagnosis Differential Diagnoses: The differential diagnosis associated with the presentation includes (SDH, SAH, ICH, SU[employer] TI[employer] mass, meningitis, encephalitis, CVA, GCA, migraine, headache) Independent Historian Clinical information obtained from an independent historian. History obtained from or confirmed by: Spouse External Record Review External record reviewed: Outpatient record and Prior outpatient radiology 01/23/25 CT/CT head/brain wo IV con IMPRESSION: No acute intracranial abnormality. Normal examination. Prescription Management I considered prescription management with: Pain Medication Discharge Plan Discharge Clinical Impression: Headache Patient Disposition: Home, Self-Care Instructions: Acute Headache (ED) Additional Instructions: You can take ibuprofen 200 mg, 3 tablets (600mg) every 6-8 hours as needed for pain, in addition to Tylenol 500 mg, 2 tablets (1,000mg) every 4-6 hours as needed for pain, but not to exceed 3 doses daily (3,000mg).? Contact your primary care provider to arrange for follow-up visit. As discussed, you should also follow-up with her dental provider, they should contact their office tomorrow morning to request an appointment. Prescriptions: New ibuprofen 600 mg tablet 600 mg PO Q8H PRN (Reason: pain) Qty: 30 0RF No Action amoxicillin 500 mg tablet 500 mg PO BID Qty: 14 0RF Referrals: Physician,None [Primary Care Provider] - Print Language: Chinese
[2025-01-27 09:25] VITALS: BP 148/103; PULSE 100; RESP 19; TEMP 36.6; O2SAT 96
== END 2025-01-27 09:29 | disposition home or self-care (01) ==
PROVIDERS: Emergency Provider Emergency Medicine
DX: R51.9 Headache, unspecified (principal)
CPT/HCPCS: 99282; 99283

== ENCOUNTER 2025-02-09 10:44 | Emergency (ER) | payer MEDICAID, SELFPAY ==
[2025-02-09 10:57] VITALS: BP 136/84; PULSE 98; RESP 14; TEMP 36.9; O2SAT 98; BMI 32.9
--- NOTE | 2025-02-09 11:06 | ED.GENADULT ---
HPI - General Adult General Chief complaint: Dental/Oral Stated complaint: tooth abscess Time Seen by Provider: 02/09/25 11:03 Source: patient and family (significant other ) Mode of arrival: ambulatory Limitations: no limitations History of Present Illness ED Provider: Mati Leigh PA-C HPI narrative: 24 yo male with PMHx of anxiety presents to the ED today due to 3 days of facial swelling and dental pain. Patient states that he went to the dentist yesterday (02/08) and dentist started him on a course of amoxicillin for swelling. Patient reports that the tooth is going to be extracted, but dentist wanted him to finish course of antibiotics 1st. He reports experiencing chills last night but was unsure if he had a fever, woke up this morning and noticed worsening swelling and pain of the upper left jaw that is now going into the left periorbital area. He states he started the course of amoxicillin and has taken 1 dose. He has been alternating Tylenol and Motrin without effect. He states there is a bump on the upper left gum. Denies chest pain, shortness of breath, nausea or vomiting, diarrhea, headaches, visual changes, sore throat, otalgia. MD complaint: left side dental pain Onset (ago): day(s) (3) Location: mouth (left upper mouth, tooth 13) Radiation: non-radiation Severity: moderate Quality: aching and constant Pain Consistency: constant Relieving factors: none Exacerbating factors: none Associated symptoms: denies other symptoms Treatments prior to arrival: none and other Related Data Previous Rx's ?Medication ?Instructions ?Recorded amoxicillin 500 mg tablet 500 mg PO BID #14 tabs 12/06/24 ibuprofen 600 mg tablet 600 mg PO Q8H PRN pain #30 tabs 01/27/25 clindamycin HCl 300 mg capsule 300 mg PO Q6H 10 days #40 caps 02/09/25 oxycodone 5 mg tablet 5 mg PO Q6H PRN severe pain (scale 02/09/25 score 7-10) #6 tabs Allergies Allergy/AdvReac Type Severity Reaction Status Date / Time No Known Allergies Allergy Verified 02/09/25 11:01 [No Known Allergies*] Review of Systems Constitutional: Constitutional: Denies fever(s) and Denies headache(s) Eyes: Eyes: Denies change in vision and Denies other (No redness.) ENT: Denies headache(s), Denies nasal congestion, Denies nasal discharge, Denies neck pain and Denies sore throat Cardiovascular: Cardiovascular: Denies chest pain and Denies dyspnea Respiratory: Respiratory: Denies cough and Denies dyspnea Gastrointestinal: Gastrointestinal: Denies abdominal pain, Denies melena, Denies hematochezia, Denies diarrhea, Denies nausea and Denies vomiting Musculoskeletal: Musculoskeletal: Denies back pain, Denies muscle weakness, Denies neck pain and Denies numbness Neurologic: Denies headache(s), Denies focal weakness and Denies numbness [facility] Past Medical History Attestation statement: The following information was validated with the patient. Source: old records reviewed Medical History Anxiety Social History Social History Unable to assess alcohol history related to: Unknown Patient Tobacco Use Status: Current everyday Tobacco user Use of substances other than those prescribed or required for medical reasons: Unknown Advance Directives: No Advance Directives Information Provided: No Do you have a plan to hurt others: No Plan Physical Exam ED Vital Signs: Vital Signs - 24 hr 02/09/25 10:57 02/09/25 12:10 Temperature 98.5 F 98.5 F Pulse Rate 98 84 Respiratory Rate 14 20 Blood Pressure 136/84 137/87 Pulse Oximetry 98 97 Oxygen Delivery Method Room Air Room Air BMI result Body Mass Index 32.9 HENMT Other: oropharynx is moist. No tongue elevation or edema. Speaks full clear sentences. No stridor or drooling. Head: Yes other (left sided facial swelling, mild Erythema . No induration or streaking) Face and sinus: No face symmetric ( left-sided facial swelling), Yes erythema and Yes edema Mouth: moist mucous membranes, no drooling, no muffled voice, normal tongue and no trismus Teeth and gingiva: gingiva abnormal ( approx 5 mm fluctuant abscess over 13th tooth of the left upper jaw) edematous and tender ( 13th tooth) Throat: Yes posterior oropharynx normal, Yes tonsils normal, Yes uvula midline, No uvula laterally displaced, No uvular edema and No cobblestoning Eyes Periorbital: periorbital findings abnormal ( mild left periorbital swelling) left Eyelids: Yes eyelids normal Conjunctivae: conjunctivae normal Sclerae: sclerae normal Corneas: corneas normal Pupils: Equal, round and reactive pupils present EOM: EOMs intact bilaterally Neck Neck: Yes normal visual inspection, Yes no lymphadenopathy and Yes trachea midline Resp Effort & Inspection: normal respiratory effort, able to speak in complete sentences and no cough Cardio Rate: regular rate Rhythm: regular rhythm Heart sounds: S1 normal heart sound present and S2 normal heart sound present Skin General skin exam: no rashes or lesions noted Neuro Cranial nerves: Yes Equal, round and reactive pupils present Course Reevaluation(s) Reevaluation #1: I&D performed on gingival abscess over 13th tooth. Area was anesthetized with 1% Lido and epi. no active bleeding, less than 1 mL of fluid drained. Patient tolerated procedure well. First dose of Clindamycin given. Patient counseled on strict return precautions and instructions for follow-up with his dentist. All questions by patient and his significant other were answered. Time: 12:00 Medications Administered Discontinued Medications Generic Name Dose Route Start Last Admin Trade Name Fanny PRN Reason Stop Dose Admin Clindamycin HCl 300 mg 02/09/25 11:21 02/09/25 11:57 Clindamycin Hcl 300 Mg Capsule PO 02/09/25 11:22 300 mg ONCE ONE Administration Lidocaine/Epinephrine 10 ml 02/09/25 11:21 02/09/25 11:35 Lidocaine Hcl 1%/Epi 1:100,000 10 Ml Vial SUBCUT 02/09/25 11:22 10 ml ONCE ONE Administration Procedures Abscess I/D Site: oral ( gingival abscess of 13th tooth) Sedation/analgesia: none Local Anesthetic: lidocaine 1% and with epi Amount of anesthesia used (mL): 5 Technique: incised with blade Amount of fluid expressed (mL): 1 Sent for culture/gram staining?: No Irrigation: No Packing used?: none Complications: other ( no complications) Medical Decision Making Medical Decision Making MDM Narrative: 24 yo male with PMHx of anxiety presents to the ED today due to 3 days of facial swelling and dental pain. vital signs stable, patient is nontoxic appearing, in no acute distress, no respiratory distress. On physical exam there is an approximately 5 mm fluctuant abscess over the 13th tooth ( upper left jaw). there is mild facial swelling of the left side up to the periorbital area with mild erythema. There is no active drainage or bleeding of the abscess at this time. Extraocular movements are intact with no pain with eye movement, no visual changes making a deep infection or infection of the orbit less likely. Uvula is midline, there is no submental edema, no concern for Samuel's, RN RESOURCE NURSE, Retropharyngeal abscess. Abscess will be drained in the department, and patient will be given a dose of clindamycin. Patient will be started on 10 day course of clindamycin for soft tissue dental infection, and prescribed 6 oxycodone for pain management. Patient counseled on strict return precautions. Differential Diagnosis Differential Diagnoses: The differential diagnosis associated with the presentation includes gingival abscess Peritonsillar abscess Retropharyngeal abscess Samuel's angina Cellulitis dental sandeep sinusitis Admission/Observation Consideration of admission/observation: Escalation of care including admission/observation considered Independent Historian Clinical information obtained from an independent historian. History obtained from or confirmed by: Spouse (significant other at bedside) External Record Review External record reviewed: Inpatient record and Outpatient record Prescription Management I considered prescription management with: Pain Medication ( oxycodone 5 mg ) and Antibiotic ( 10 day course of clindamycin) Discharge Plan Discharge Clinical Impression: Gingival abscess, Dental abscess Patient Disposition: Home, Self-Care Instructions: Abscess Incision and Drainage (DC) Additional Instructions: You were evaluated in the ED today due to an abscess over your 13th tooth of the left upper jaw. Your vital signs are reassuring with no fever. The abscess was drained in the emergency department with small volume of fluid drained. You will be prescribed a course of Clindamycin that you should take over 10 days. You will also be prescribed oxycodone for pain management. For pain management you can alternate Tylenol and Motrin every 6 hours do not exceed 3000 mg in a 24 hour. Continue to do salt water gargles and rinses. Oxycodone as a narcotic medication, with risk for dependence. Please only take for severe pain. This medication can make you drowsy please do not drive or operate machinery while on this medication. Please take as directed on the instructions. Do not take more than directed as this medication can cause respiratory distress. Please return to the emergency department if you experience any fevers over 100.4?, increased swelling, visual changes, increased pain, persistent pain, or any other symptoms or concerns. Discontinue taking amoxicillin. Follow-up with your primary care provider. Call this week to schedule a follow-up appointment. Return to the emergency department if you have any worsening of symptoms, or any concerns. Get well soon! Prescriptions: New clindamycin HCl 300 mg capsule 300 mg PO Q6H 10 Days Qty: 40 0RF oxycodone 5 mg tablet 5 mg PO Q6H PRN (Reason: severe pain (scale score 7-10)) Qty: 6 0RF Rx Instructions: Partial Fill upon patient request. No Action amoxicillin 500 mg tablet 500 mg PO BID Qty: 14 0RF ibuprofen 600 mg tablet 600 mg PO Q8H PRN (Reason: pain) Qty: 30 0RF Interventions: ED Discharge Assessment Last Done: 02/09/25 12:37 Discharge Date/Time: 02/09/25 12:37 Print Language: Martiniquais
--- OUTSIDE RECORDS SUMMARY | 2025-02-09 11:08 | XMS_ITS ---
Author Organization [facility] Address [address], [place] [id number] Care Team Providers Care Contracts Analyst Name Role Phone Amarjit Smith Primary Care Provider Alexa Valerio Unavailable [phone] REASON FOR VISIT office: f/u Medications Medication [...] Male Encounters Encounter Location Date Provider Diagnosis [id number] [place], [place] [id number] 06/06/2024 Alexa Valerio Encounter for screening for [...] Notes * Calvin CARROLLDOB:2000 (24 yo M)Acc No.[id number]:06/06/2024 Progress Notes Patient:?Calvin CARROLL Provider:?JESUS Godfrey :2000???Age:23 Y???Sex:Male Stef e:06/06/2024 Address:[address] [place], [place] [id number] Pcp:Amarjit Smith Subjective: * Chief Complaints: * [...] * Electronic signature of Fermín Valerio on 02/09/2025 at 11:08 AM EDT Sign off status: Pending * Provider:?JESUS Godfrey Date: ?06/06/2024 Generated for Aly engel/Constance/Ky on:?02/09/2025 11:08 AM EDT
--- OUTSIDE RECORDS SUMMARY | 2025-02-09 11:08 | XMS_ITS | Patient Health Record ---
Author Organization [facility] Address [address] [place], [place] [id number] Care Team Providers Care Soil Chemist Name Role Phone Amarjit Smith Primary Care Provider Alexa Valerio Unavailable [phone] Allergies No Known Allergies Reason For Referral [...] unspecified (F14.129) Active confirmed Problem Tobacco user (921661652) Nicotine dependence, cigarettes, uncomplicated (F17.210) Active confirmed Problem Recurrent major depression in remission (89155440) Major depressive disorder, recurrent, in partial remission (F33.41) Active confirmed Problem Generalized anxiety disorder (32566092) Generalized anxiety disorder (F41.1) Active confirmed Problem Pervasive developmental disorder (disorder) (94164602) Autistic disorder (F84.0) Active confirmed Problem Attention deficit hyperactivity disorder, predominantly inattentive type (34106366) Attention-deficit hyperactivity disorder, predominantly inattentive type (F90.0) Active confirmed Problem Functional dyspepsia (4182224) Functional dyspepsia (K30) Active confirmed Problem Depression Screening (732387894) Encounter for screening for depression (Z13.31) Active confirmed Problem Body mass index 20-24 - normal (604985713) Body mass index [BMI] 22.0-22.9, adult (Z68.22) Active confirmed Problem Unsheltered homelessness (242358515618974) Unsheltered homelessness (Z59.02) Active confirmed Encounters Encounter Location Date Provider Diagnosis [facility] [address], [place] [phone] 04/30/2024 Amarjit Smith [facility] [address], [place] [phone] 08/17/2024 Amarjit Smith Assessments Encounter Date Diagnosis (ICD Code) Assessment Notes Treatment Notes Treatment Clinical Notes Section Notes 06/06/2024 Other 08/17/2024 Other Plan Of Treatment No Information Insurance Providers Payer Name Payer Address Payer Phone Subscriber Number Group Number Insured Name Patient Relationship to Insured Coverage Start Date Coverage End Date [place] C[place] [address] [place], [place] [id number] [phone] [id number] Calvin Barr Self - patient is the insured [place] [employer] [address] [place] [address] [phone] [id number] Calvin Barr Self - patient is the insured 2 Medical (General) History Medical History History ICD Code Depression vs other Mood Disorder Anxiety Autism Cocaine abuse history Hospitalization History Reason Date(Month/Year) ER visits for CP and anxiety 02/22 Mental health - psych admits as a young teen, N [facility] see Hx
[2025-02-09] MEDS: Lidocaine HCl 1%/Epi 1:100,000 10 ML VIAL SUBCUT (11:35)
[2025-02-09] MEDS: Clindamycin HCL 300 MG CAPSULE PO (11:57)
[2025-02-09 12:10] VITALS: BP 137/87; PULSE 84; RESP 20; TEMP 36.9; O2SAT 97
[2025-02-09 12:37] VITALS: BP 137/87; PULSE 84; RESP 20; TEMP 36.9; O2SAT 97
== END 2025-02-09 12:37 | disposition home or self-care (01) ==
PROVIDERS: Emergency Provider Emergency Medicine
DX: K04.7 Periapical abscess without sinus (principal); F17.210 Nicotine dependence, cigarettes, uncomplicated
CPT/HCPCS: 41800; 99284; J2004

== ENCOUNTER 2025-04-10 06:14 | Emergency (ER) | payer MEDICAID, SELFPAY ==
--- NOTE | 2025-04-10 | ECG_ITS ---
Test Reason : chest pain Blood Pressure : */* mmHG Vent. Rate : 94 BPM Atrial Rate : 94 BPM P-R Int : 142 ms QRS Dur : 84 ms QT Int : 350 ms P-R-T Axes : 67 91 49 degrees QTcB Int : 437 ms Normal sinus rhythm Rightward axis Borderline ECG When compared with ECG of 26-Dec-2024 07:45, No significant change was found Referred By: Generic ED Physician Electronically Signed By: Paxton Munson
--- NOTE | ~2025-04-10 | XR_ITS ---
EXAMINATION: XR CHEST CLINICAL INFORMATION: chest pain COMPARISON: 12/26/2024. TECHNIQUE: 2 views of the chest were obtained. FINDINGS: The cardiac, hilar, and mediastinal contours are normal. The lungs are clear bilaterally. There is no pneumothorax or pleural effusion. There is no focal osseous or soft tissue abnormality. XR/XR chest 2V IMPRESSION: Normal chest. Electronically signed by: Calvin Valle MD 04/10/2025 11:12 AM EDT
[2025-04-10 06:23] VITALS: BP 140/92; PULSE 99; RESP 18; TEMP 36.9; O2SAT 97; BMI 33.8
[2025-04-10 06:41] LABS: Hematocrit 41.6 % (42.0-52.0); Hemoglobin 14.9 g/dl (14.0-18.0); Mean Corpuscular HGB Conc 35.8 g/dl (31.0-36.0); Mean Corpuscular Hemoglobin 30.8 pg (27.0-33.0); Mean Corpuscular Volume 86.0 fL (80.0-98.0); NRBC Abs Auto 0.000 X10*3/uL (0.0-0.012); NRBC Pct Auto 0.0 /100WBC (0.0-0.2); Platelet Count 268 X10*3/uL (160-400); Red Blood Count 4.84 X10*6/uL (4.60-5.80); White Blood Count 10.0 X10*3/uL (4.8-10.8)
[2025-04-10 06:57] LABS: Alanine Aminotransferase 71 U/L (0-40); Albumin Level 4.8 g/dL (3.5-5.0); Alkaline Phosphatase 72 U/L (39-117); Anion Gap 13 (12-20); Aspartate Amino Transferase 31 U/L (5-37); Blood Urea Nitrogen 12 mg/dL (9-16); Calcium 9.5 mg/dL (8.4-10.2); Carbon Dioxide 25 mmol/L (22-29); Chloride 106 mmol/L (96-108); Creatinine Clr Calc Pharmacy 168.1; Estimated Glomerular Filt Rate > 60; Magnesium 2.1 mg/dL (1.6-2.6); Potassium 4.1 mmol/L (3.3-5.1); Sodium 140 mmol/L (135-145); Total Protein 7.3 g/dL (6.5-8.0)
[2025-04-10 07:18] LABS: Resp Syncy Virus RNA Qual PCR NEGATIVE (Negative); SARS COV2 PCR INHOUSE NEGATIVE (Negative)
[2025-04-10 08:28] VITALS: BP 132/90; PULSE 93; RESP 16; TEMP 36.8; O2SAT 97
--- NOTE | 2025-04-10 08:35 | ED_ITS ---
HPI - General Adult General Chief complaint: General Medical Stated complaint: chest pain, cold sweats Time Seen by Provider: 04/10/25 07:55 Source: patient, family (aunt), RN notes reviewed and old records reviewed Mode of arrival: ambulatory Limitations: no limitations History of Present Illness ED Provider: Kim HPI narrative: Patient is a 24-year-old male with reported history of autism presenting to the emergency department with a complaint of left-sided chest and arm pain well as back pain for several months. States this morning the chest pain was worse starting around 3am. He called his aunt advised him to present to the emergency department for evaluation. Describes the pain as a dull burning. States that he recently quit smoking but has been vaping as a replacement. Denies drug or alcohol use, states he has been sober for 4 years. Also states that on Tuesday while he was playing video games he developed left testicular pain. He googled his symptoms and thought his pain was due to torsion, attempted to de-torse himself. Pain has been resolved since but he is requesting STI testing as well. Denies any dysuria, frequency, hematuria or other urinary symptoms. Denies any penile discharge, scrotal swelling, erythema. Denies recent travel, calf pain or swelling, denies family history of throboembolism. MD complaint: chest pain Onset (ago): month(s) Related Data Previous Rx's ?Medication ?Instructions ?Recorded amoxicillin 500 mg tablet 500 mg PO BID #14 tabs 12/06 ibuprofen 600 mg tablet 600 mg PO Q8H PRN pain #30 t abs 01/27/25 clindamycin HCl 300 mg capsule 300 mg PO Q6H 10 days # 40 caps 02/09/25 oxycodone 5 mg tablet 5 mg PO Q6H PRN severe pain (scale 02/09/25 score 7-10) #6 tabs cyclobenzaprine 10 mg tablet 10 mg PO TID PRN muscle s pasm #10 04/10/25 tabs Allergies Allergy/AdvReac Type Severity Reaction Status Date / Time No Known Allergies (No Known Allergy Verified 04/10/25 06:26 Allergies*) Review of Systems 2 Review of Systems: As per HPI Yes all other systems are reviewed and are negative Constitutional: Constitutional: Reports as per HPI [facility] Past Medical History Medical History Anxiety Social History Social History Unable to assess alcohol history related to: Unknown Patient Tobacco Use Status: Current everyday Tobacco user Smoked in Last 30 Days: No Use of substances other than those prescribed or required for medical reasons: No Advance Directives: No Advance Directives Information Provided: Yes Physical Exam ED Vital Signs: Vital Signs - 24 hr 04/10/25 06:23 04/10/25 08:28 04/10/25 10:14 Temperature 98.4 F 98.2 F 97.9 F Pulse Rate 99 93 79 Respiratory Rate 18 16 14 Blood Pressure 140/92 H 132/90 H 119/79 Pulse Oximetry 97 97 97 Oxygen Delivery Method Room Air Room Air Room Air BMI result Body Mass Index 33.8 Vital signs have been reviewed and appear to be correct. Blood pressure normal. Heart rate normal. Respiratory rate normal. Temperature normal. Oxygen saturation normal. Const General: cooperative, healthy appearing and no acute distress Orientation/consciousness: oriented to person, oriented to place, oriented to time and patient oriented x3 Limitations: no limitations HENMT Head: Yes normocephalic and Yes atraumatic Ears: external ears normal General nose exam: Normal external nose present Face and sinus: Yes face symmetric Mouth: oropharynx normal and moist mucous membranes Throat: Yes uvula midline Eyes Pupils: Equal, round and reactive pupils present Neck Neck: Yes normal visual inspection and Yes supple Resp Effort & Inspection: normal respiratory effort and able to speak in complete sentences Auscultation: clear to auscultation bilaterally Cardio Rate: regular rate Rhythm: regular rhythm Heart sounds: S1 normal heart sound present and S2 normal heart sound present GI Palpation (GI): Soft to palpation and nontender Auscultation: normoactive bowel sounds General: Yes no CVA tenderness Back/Spine/Pelvis Back: no CVA tenderness Skin General skin exam: elasticity normal and turgor normal Neuro General: oriented to person, oriented to place, oriented to time, patient oriented x3, moves all extremities, no focal motor deficits and CN's II-XI intact bilaterally Cranial nerves: Yes Equal, round and reactive pupils present Cognition (Neuro): normal cognition Extrem General: Yes full ROM, Yes no pedal edema and Yes no calf tenderness Psych Mental Status: mental status grossly normal Affect: normal affect Thought process: Normal thought process present Medications Administered Discontinued Medications Generic Name Dose Route Start Last Admin Trade Name Fanny PRN Reason Stop Dose Admin Calcium Carbonate 750 mg 04/10/25 11:29 04/10/25 11:35 Calcium Carbonate 750 Mg Tab.Chew PO 04/10/25 11:30 750 mg ONCE ONE Administration Medical Decision Making Medical Decision Making [facility] Narrative: Patient is a 24-year-old male with reported history of autism presenting to the emergency department with a complaint of left-sided chest and arm pain well as back pain for several months. On exam patient is awake, A+Ox3, VS WNL, afebrile, normal neurological exam without focal deficits, physical exam findings as above. Given reported symptoms and physical exam findings, initial differential includes but is not limited to musculoskeletal pain, GERD, PUD, UTI, STI. Unlikely ACS as sxs occurring for months. D-dimer negative, unlikely PE. Negative troponin, no significant electrolyte abnormalities, labs otherwise unremarkable. X-ray notable for no evidence of pneumonia, pneumothorax. My interpretation is in agreement with the radiologist's interpretation. While discussing results, patient's significant other now stating that she often notes he sleeps with his left arm extended and up against a wall, questioning whether this is related to his symptoms. Discussed that given the pain is worse with movement and palpation it is likely musculoskeletal cause and his sleeping position could be related. Advised follow up with PCP as patient may need PT. return precautions discussed. Patient verbalized understanding of and agreement with plan. Differential Diagnosis Differential Diagnoses: The differential diagnosis associated with the presentation includes as per [facility] Admission/Observation Consideration of admission/observation: Escalation of care including admission/observation considered Patient would have been admitted to the hospital had his clinical presentation warranted hospital admission. Lab Data [facility] Lab Attestation statement: I reviewed the patient's lab results. As per [facility] 04/10/25 06:36 04/10/25 06:36 Labs: Lab Results 04/10/25 04/10/25 04/10/25 Range/Units 06:36 09:16 09:27 WBC 10.0 (4.8-10.8) X10*3/uL RBC 4.84 (4.60-5.80) X10*6/uL Hgb 14.9 (14.0-18.0) g/dl Hct 41.6 L (42.0-52.0) % MCV 86.0 (80.0-98.0) fL MCH 30.8 (27.0-33.0) pg MCHC 35.8 (31.0-36.0) g/dl RDW 12.6 (11.0-16.0) % Plt Count 268 (160-400) X10*3/uL MPV 8.6 L (9.4-12.4) fL Absolute Nucleated RBC 0.000 (0.0-0.012) X10*3/uL Nucleated RBC % (auto) 0.0 (0.0-0.2) /100WBC D-Dimer High Sensitivty < 150 NG/ML Sodium 140 (135-145) mmol/L Potassium 4.1 (3.3-5.1) mmol/L Chloride 106 (96-108) mmol/L Carbon Dioxide 25 (22-29) mmol/L Anion Gap 13 (12-20) BUN 12 (9-16) mg/dL Creatinine 0.99 (0.5-1.4) mg/dL Estim Creat Clear Calc 168.1 Estimated GFR > 60 Random Glucose 103 (60-115) mg/dL Calcium 9.5 (8.4-10.2) mg/dL Magnesium 2.1 (1.6-2.6) mg/dL Total Bilirubin 0.3 (0.0-1.0) mg/dL AST 31 (5-37) U/L ALT 71 H (0-40) U/L Alkaline Phosphatase 72 (39-117) U/L Troponin I High Sens < 2.7 (<3.5-35.0) ng/L Total Protein 7.3 (6.5-8.0) g/dL Albumin 4.8 (3.5-5.0) g/dL Urine Color Yellow Urine Appearance Clear Urine pH 6.0 (5.0-9.0) Ur Specific [place] 1.025 (1.005-1.025) Urine Protein Negative (Neg-Trace) mg/dL Urine Glucose (UA) Negative (Negative) mg/dL Urine Ketones Trace (Negative) mg/dL Urine Blood Negative (Negative) Urine Nitrite Negative (Negative) Ur Leukocyte Esterase Negative (Negative) Ur N gonorrhoeae DNA (PCR) NOT DETECTED (Not Detect.) Ur Chlamydia DNA (PCR) NOT DETECTED (Not Detect.) Influenza Type A (PCR) NEGATIVE (Negative) Influenza Type B (PCR) NEGATIVE (Negative) RSV RNA Qual (PCR) NEGATIVE (Negative) SARS-CoV-2 RNA (RT-PCR) NEGATIVE (Negative) Independent Interpretation I performed an independent interpretation of an: EKG (Normal sinus rhythm, rate 94 beats per minute, normal [place] interval and QTC, no significant change from prior) and Plain X-Ray (No evidence of pneumonia or pneumothorax on chest x-ray) Radiology Impression Discussion of test interpretation with radiology: I have reviewed the radiologist's reading. Radiologist Impression: XR/XR chest 2V IMPRESSION: Normal chest. External Record Review External record reviewed: Inpatient record, Office record and Outpatient record Discharge Plan Discharge Clinical Impression: Atypical chest pain Patient Disposition: Home, Self-Care Instructions: Chest Pain (DC), Noncardiac Chest Pain (ED) Additional Instructions: You were evaluated in the emergency department today for chest pain. Your evaluation has shown no signs of medical conditions requiring emergent intervention at this time, however we recommend that you follow-up with your primary care physician or your fashion marketer for further testing as an outpatient. Please schedule an appointment for follow-up with your primary care physician as soon as possible. Return to the emergency department if you experience worsening or uncontrolled chest pain, shortness of breath, lightheadedness, feeling faint, loss of consciousness, nausea, vomiting, or any other concerning symptoms. Prescriptions: New cyclobenzaprine 10 mg tablet 10 mg PO TID PRN (Reason: muscle spasm) Qty: 10 0RF No Action amoxicillin 500 mg tablet 500 mg PO BID Qty: 14 0RF clindamycin HCl 300 mg capsule 300 mg PO Q6H 10 Days Qty: 40 0RF oxycodone 5 mg tablet 5 mg PO Q6H PRN (Reason: severe pain (scale score 7-10)) Qty: 6 0RF Rx Instructions: Partial Fill upon patient request. ibuprofen 600 mg tablet 600 mg PO Q8H PRN (Reason: pain) Qty: 30 0RF Print Language: Belgian
--- NOTE | 2025-04-10 08:48 | PC.NURSE ---
Pt alert and oriented. family at bedside. Pt reports he was experiencing chest pain and back pain that radiated down left arm, that started around 3 am. He described the pain in his chest as dull and burning. He did report having testicular pain 2 days ago that has since resolved. Denies any pain or difficulty urinating. No other complaints reported. His breathing is unlabored, skin is pink, warm and dry. NSR on tele. Plan for additional labs and imaging.
[2025-04-10 09:32] LABS: D Dimer High Sensitivity < 150 NG/ML
[2025-04-10 09:36] LABS: Appearance Urine Clear; Glucose Urine UA Negative (Negative); PH 6.0 (5.0-9.0); Specific Gravity - Urine 1.025 (1.005-1.025)
[2025-04-10 09:52] LABS: Troponin-I High Sensitivity < 2.7 ng/L (<3.5-35.0)
[2025-04-10 10:14] VITALS: BP 119/79; PULSE 79; RESP 14; TEMP 36.6; O2SAT 97
[2025-04-10 11:26] LABS: CT PCR Urine NOT DETECTED (Not Detect.); NG PCR Urine NOT DETECTED (Not Detect.)
[2025-04-10 12:34] VITALS: BP 132/79; PULSE 77; RESP 20; TEMP 36.4; O2SAT 95
[2025-04-10 12:53] VITALS: BP 132/79; PULSE 77; RESP 20; TEMP 36.4; O2SAT 95
== END 2025-04-10 12:54 | disposition home or self-care (01) ==
PROVIDERS: Registered Nurse Emergency; Emergency Provider Emergency Medicine
DX: R07.89 Other chest pain (principal); M79.602 Pain in left arm; M79.601 Pain in right arm; N50.812 Left testicular pain; Z87.891 Personal history of nicotine dependence; Z03.818 Encounter for observation for suspected exposure to other biological agents ruled out; Z20.2 Contact with and (suspected) exposure to infections with a predominantly sexual mode of transmission
CPT/HCPCS: 36415; 71046; 80053; 81003; 83735; 84484; 85027; 85379; 87491; 87591; 87637; 93005; 99283; 99284

== ENCOUNTER → 2025-04-10 06:17 | Outpatient (BNV) | payer MEDICAID, SELFPAY | PROVIDERS: Emergency Provider Emergency Medicine; Visit Provider Internal Medicine Cardiovascular Disease | DX: R07.89 Other chest pain (principal) | CPT/HCPCS: 93010 ==

== ENCOUNTER → 2025-04-10 10:58 | Outpatient (BNV) | payer MEDICAID, SELFPAY | PROVIDERS: Emergency Provider Emergency Medicine; Visit Provider Radiology Diagnostic Radiology | DX: R07.9 Chest pain, unspecified (principal) | CPT/HCPCS: 71046 ==

== ENCOUNTER 2025-06-11 06:47 | Emergency (ER) | payer MEDICAID, SELFPAY ==
--- OUTSIDE RECORDS SUMMARY | 2024-06-06 07:30 | XMS_ITS ---
Author Organization [facility] Address [address] [place] [address] Care Team Providers Care Online Services Manager Name Role Phone Amarjit Smith Primary Care Provider [phone] Alexa Valerio Unavailable [phone] REASON FOR VISIT office: f/u Medications Medication SIG (Take, Route, Frequency, Duration) Notes Start Date End Date Status omeprazole 40 mg 1 cap(s) orally once a day for 30 days Active hydrOXYzine pamoate 50 mg 1 cap(s) orall y 3 times a day as needed for anxiety for 30 days Active Abilify 10 mg 1 tab(s) orally once a day for 30 days Active Atomoxetine Hydrochloride 40 mg 1 cap(s) orally once a day (in the morning) for ADHD for 30 days Active BuPROPion Hydrochloride XL 150 mg/24 hours 1 tab(s) orally every 24 hours for 30 days Active cloNIDine 0.1 mg 1 tab(s) orally once a day (at bedtime) for 30 days Active Social History Sex Assigned At : Social History Observation Description Sex Assigned At Male Encounters Encounter Location Date Provider Diagnosis [address] [place] [address] 06/06/2024 Alexa Valerio Encounter for screening for [...] for COVID-19. Progress Notes * Calvin CARROLLDOB:2000 (24 yo M)Acc No.[id number]:06/06/2024 Progress Notes Patient: Calvin LUNA Provider: JESUS Cleveland :2000 A ge:23 Y S ex:Male Date:06/06/2024 Address:[address] [place], [place] [phone] Pcp:Amarjit Smith Subjective: * Chief Complaints: * [...] * Medical History: * Medications: T aking BuPROPion Hydrochloride XL 150 mg/24 hours tablet, extended release 1 tab(s) orally every 24 hours , Taking Atomoxetine Hydrochloride 40 mg capsule 1 cap(s) orally once a day (in the morning) for ADHD , Taking Abilify 10 mg tablet 1 tab(s) orally once a day , Taking cloNIDine 0.1 mg tablet 1 tab(s) orally once a day (at bedtime) , Taking hydrOXYzine pamoate 50 mg capsule 1 cap(s) orally 3 times a day as needed for anxiety , Taking omeprazole 40 mg delayed release capsule 1 cap(s) orally once a day Objective: * Vitals: Assessment: * Assessment: 1. E ncounter for screening for COVID-19 - Z11.52 (Primary) Plan: * Treatment: * Images: Billing Information: * Visit Code: * Procedure Codes: Care Plan Details* * Electronic signature of Fermín Valerio on 06/11/2025 at 06:58 AM EDT Sign off status: Pending * Provider: JESUS Cleveland Date: 06/06/2024 Generated for Aly engel/Constance/Ky on: 06/11/2025 06:58 AM EDT
--- OUTSIDE RECORDS SUMMARY | 2024-08-17 07:20 | XMS_ITS ---
Author Organization [facility] Address [address] [place] [address] Care Team Providers Care Ready Mix Truck Driver Name Role Phone Abbe Smithw Primary Care Provider Allergies No Known Allergies REASON FOR VISIT HUDDLE: any vax?(MIIS- Varicella-03/07/2021), VISIT: tobacco; adjustment, Symptom screening by [facility] staff pre entrance to clinic Medications Medication SIG (Take, Route, Frequency, Duration) Notes Start Date End Date Status cloNIDine 0.1 mg 1 tab(s) orally once a day (at bedtime) for 30 days Active hydrOXYzine pamoate 50 mg 1 cap(s) orall y 3 times a day as needed for anxiety for 30 days Active omeprazole 40 mg 1 cap(s) orally once a day for 30 days Active BuPROPion Hydrochloride XL 150 mg/24 hours 1 tab(s) orally every 24 hours for 30 days Active Atomoxetine Hydrochloride 40 mg 1 cap(s) orally once a day (in the morning) for ADHD for 30 days Active Abilify 10 mg [...] 06/24/2022 Encounters Encounter Location Date Provider Diagnosis [facility] [address] [place] [address] 08/17/2024 Amarjit Smith Encounter for screening for [...] Notes * Calvin CARROLLDOB:2000 (24 yo M)Acc No.[id number]:08/17/2024 Progress Notes Patient: Calvin LUNA Provider: Danae Smith MD :2000 A ge:24 Y S ex:Male Date:08/17/2024 Address:[address] [place] [address], [facility] [place] [place], [phone] Subjective: * Chief Complaints: * 1 . HUDDLE: any vax?(MIIS- Varicella-03/07/2021). 2. VISIT: tobacco; adjustment. 3. Symptom screening by [facility] staff pre entrance to clinic. * [...] had not arrived for 11:20 appt Calling [phone]. No answer. not set up yet. * [...] history. * Hospitalization/Major Diagno stic Procedure: M [facility] - psych admits as a young teen, N Respite see [facility] , ER visits for CP and anxiety 02/22. * Family History: M other: alive, unknown age. F ather: alive, unknown age, alcohol abuse. D aughter(s): alive 1 yr. 1 brother(s) , 1 sister(s) - healthy. 1 daughter(s) . . Daughter Spina Bifida. * Social History: H ousing/living arrangements: 12/23: Housed on spring through Staying out in a tent in [place]. S [facility] Screening Entered Date 0 03/11/2023 How is this screening being conducted today? I n-person What is your housing situation today? 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 S marilu Last grade completed 1 2 Reading/Writing competent L iterate W ork Hx: 06/24 Last worked early 2021 at [employer]. I ncome: 06/24 No income. L egal issues/Incarcerations: 06/24 Probation. P CP/last visit: 06/04 Unable to answer when he last saw a pcp. Thinks he saw a provider in [place]?. T ransportation: 06/24 Bike or walk. M [...] Denies. S ocial hx: 06/24 Born in [place], raised in [facility] [place] [facility]. Lived with mother and sibilings until 11 or 12 he was placed in [facility] custody. * Medications: T aking BuPROPion Hydrochloride XL [...] Electronic signature of Carline Smith MD on 06/11/2025 at 06:58 AM EDT Sign off status: Pending * Provider: Danae Smith MD Date: 10/17/2023 Generated for Aly engel/Constance/Ky on: 0 06/11/2025 06:58 AM EDT
--- NOTE | ~2025-06-11 | CT_ITS ---
EXAMINATION: CT ABDOMEN AND PELVIS WITH CONTRAST CLINICAL INFORMATION: Left upper quadrant tenderness COMPARISON: None available. TECHNIQUE: Multidetector volumetric images were obtained from the superior aspect of the liver through the pubic symphysis following administration 85 mL of Omnipaque 350 intravenous contrast. Sagittal and coronal reformatted images were obtained on the technologist's workstation. Oral contrast: No This CT examination was performed using dose optimization techniques as appropriate, variously including the following: *Automated exposure control *Adjustment of mA and/or kV according to patient size (this includes techniques or standardized protocols for targeted exams where dose is matched to indication/reason for exam; i.e. extremities or head) *Use of iterative reconstruction technique. DLP: 971 mGy centimeter. FINDINGS: LUNG BASES: Linear attenuation in the right middle lung lobe. LIVER, GALLBLADDER, AND BILIARY TREE: Liver measures 15 cm with slight decreased enhancement pattern of the parenchyma. No focal mass. Gallbladder is contracted. No pericholecystic fluid collection or gallbladder wall thickening. No intrahepatic or extrahepatic biliary ductal dilatation. PANCREAS: No focal mass. No peripancreatic fluid collection. No main pancreatic ductal dilatation. SPLEEN: 10 cm. No focal lesion. Accessory spleen. ADRENAL GLANDS: No nodular lesions. KIDNEYS AND URETERS: No hydronephrosis. No gross nephrolithiasis. Normal enhancement pattern of the renal parenchyma. No gross renal mass. BLADDER: Fluid-filled. GASTROINTESTINAL TRACT: Abundant stool large intestine. Swirling of the mesentery in the right hemiabdomen. No intestinal obstruction pattern. No pneumatosis intestinalis. Terminal ileum is normal. Appendix is normal. No ascites. No pneumoperitoneum. No peripheral enhancing fluid collection, peritoneal cavity. ABDOMINAL WALL: Small fat-containing umbilical hernia. LYMPH NODES: Nonspecific mildly prominent mesenteric. VASCULAR: No aneurysm or dissection, abdominal aorta. No gross calcified plaques. PELVIC VISCERA: Not enlarged. OSSEOUS STRUCTURES: No acute fracture or listhesis. Bony pelvis is intact. Coxofemoral joints are intact with normal alignment. CT/CT abdomen pelvis w IV con IMPRESSION: Small fat-containing umbilical hernia. Probable hepatic steatosis, mild. An internal hernia without obstructive pattern in the right hemiabdomen cannot be excluded. Fleischner guidelines were followed. Electronically signed by: Tommy Angelo MD 06/11/2025 10:13 AM EDT
[2025-06-11 06:48] VITALS: BP 140/90; PULSE 105; RESP 20; TEMP 36.1; O2SAT 95
--- OUTSIDE RECORDS SUMMARY | 2025-06-11 06:58 | XMS_ITS | Patient Health Record ---
Author Organization [facility] Address [address] [place] [address] Care Team Providers Care Radiation Protection Specialist Name Role Phone Amarjit Smith Primary Care Provider Allergies No Known Allergies Reason For Referral [...] unspecified (F14.129) Active confirmed Problem Tobacco user (738184858) Nicotine dependence, cigarettes, uncomplicated (F17.210) Active confirmed Problem Recurrent major depression in remission (49766154) Major depressive disorder, recurrent, in partial remission (F33.41) Active confirmed Problem Generalized anxiety disorder (03098060) Generalized anxiety disorder (F41.1) Active confirmed Problem Pervasive developmental disorder (disorder) (92665970) Autistic disorder (F84.0) Active confirmed Problem Attention deficit hyperactivity disorder, predominantly inattentive type (42808142) Attention-deficit hyperactivity disorder, predominantly inattentive type (F90.0) Active confirmed Problem Functional dyspepsia (9664029) Functional dyspepsia (K30) Active confirmed Problem Depression Screening (647997590) Encounter for screening for depression (Z13.31) Active confirmed Problem Body mass index 20-24 - normal (066348148) Body mass index [BMI] 22.0-22.9, adult (Z68.22) Active confirmed Problem Unsheltered homelessness ([id number]) Unsheltered homelessness (Z59.02) Active confirmed Encounters Encounter Location Date Provider Diagnosis [facility] [address] [place] [address] 08/17/2024 Amarjit Smith Assessments Encounter Date Diagnosis (ICD Code) Assessment Notes Treatment Notes Treatment Clinical Notes Section Notes 08/17/2024 Other Plan Of Treatment No Information Insurance Providers Payer Name Payer Address Payer Phone Subscriber Number Group Number Insured Name Patient Relationship to Insured Coverage Start Date Coverage End Date [place] [address] [place], [place] [id number] [phone] [id number] Calvin Barr Self - patient is the insured 2 [employer] [address] [place] [address] [id number] Calvin Barr Self - patient is the insured 2 Medical (General) History Medical History History ICD Code Depression vs other Mood Disorder Anxiety Autism Cocaine abuse history Hospitalization History Reason Date(Month/Year) ER visits for CP and anxiety 02/22 Mental health - psych admits as a young teen, [facility] see Hx
--- NOTE | 2025-06-11 07:12 | ED.GENADULT ---
HPI - General Adult General Chief complaint: General Medical Stated complaint: General Medical Time Seen by Provider: 06/11/25 07:11 Source: patient, family (significant other), RN notes reviewed and old records reviewed Mode of arrival: ambulatory Limitations: no limitations History of Present Illness ED Provider: Kim VÁSQUEZ narrative: Patient is a 24-year-old male with reported history of autism, anxiety presenting to the emergency department with multiple complaints including left upper quadrant abdominal pain, epigastric burning, intermittent left arm pain. Also reports episodes tingling to extremities and perioral numbness and tingling. States that he does not currently have a PCP, also does not have a therapist or psychiatrist in the community. Reports nausea but denies vomiting. Also complains of intermittent diarrhea, denies constipation. Complains of feeling dehydrated despite drinking plenty of fluids. Seen in this ED for similar complaints in April. States he is on a waiting list for a new PCP. Also reports that hw had an event a few months ago and has not wanted to leave the house since, would not elaborate on details. Has tried prilosec and famotidine without improvement. MD complaint: abdominal pain Onset (ago): month(s) Related Data Previous Rx's ?Medication ?Instructions ?Recorded amoxicillin 500 mg tablet 500 mg PO BID #14 tabs 12/06/24 ibuprofen 600 mg tablet 600 mg PO Q8H PRN pain #30 tabs 01/27/25 clindamycin HCl 300 mg capsule 300 mg PO Q6H 10 days #40 caps 02/09/25 oxycodone 5 mg tablet 5 mg PO Q6H PRN severe pain (scale 02/09/25 score 7-10) #6 tabs cyclobenzaprine 10 mg tablet 10 mg PO TID PRN muscle spasm #10 04/10/25 tabs sucralfate 1 gram tablet 1 g PO TID #21 tabs 06/11/25 Allergies Allergy/AdvReac Type Severity Reaction Status Date / Time No Known Allergies (No Known Allergy Verified 06/11/25 06:50 Allergies*) Review of Systems Review of Systems: As per HPI Yes all other systems are reviewed and are negative Constitutional: Constitutional: Reports as per HPI PMFSH Past Medical History Medical History Anxiety Social History Social History Unable to assess alcohol history related to: Unknown Patient Tobacco Use Status: Current everyday Tobacco user Advance Directives: No Advance Directives Information Provided: Yes Do you have a plan to hurt others: No Plan Physical Exam ED Vital Signs: Vital Signs - 24 hr 06/11/25 06:48 Temperature 97.0 F Pulse Rate 105 H Respiratory Rate 20 Blood Pressure 140/90 H Pulse Oximetry 95 Oxygen Delivery Method Room Air BMI result Body Mass Index 30.0 Vital signs have been reviewed and appear to be correct. Blood pressure normal. Heart rate slightly tachycardic. Respiratory rate normal. Temperature normal. Oxygen saturation normal. Const General: cooperative and no acute distress Orientation/consciousness: oriented to person, oriented to place, oriented to time and patient oriented x3 Limitations: no limitations HENMT Head: Yes normocephalic and Yes atraumatic Ears: external ears normal General nose exam: Normal external nose present Face and sinus: Yes face symmetric Mouth: oropharynx normal and moist mucous membranes Throat: Yes uvula midline Eyes Pupils: Equal, round and reactive pupils present Neck Neck: Yes normal visual inspection and Yes supple Resp Effort & Inspection: normal respiratory effort and able to speak in complete sentences Auscultation: clear to auscultation bilaterally Cardio Rate: regular rate Rhythm: regular rhythm Heart sounds: S1 normal heart sound present and S2 normal heart sound present GI Palpation (GI): Soft to palpation, Tenderness to palpation present (GI) in the LUQ (mild), no guarding and No Rebound tenderness present Auscultation: normoactive bowel sounds General: Yes no CVA tenderness Back/Spine/Pelvis Back: no CVA tenderness Skin General skin exam: elasticity normal and turgor normal Neuro General: oriented to person, oriented to place, oriented to time, patient oriented x3, moves all extremities, no focal motor deficits and CN's II-XI intact bilaterally Cranial nerves: Yes Equal, round and reactive pupils present Cognition (Neuro): normal cognition Extrem General: Yes full ROM, Yes no pedal edema and Yes no calf tenderness Psych Mental Status: mental status grossly normal Affect: normal affect Thought process: Normal thought process present Medications Administered Discontinued Medications Generic Name Dose Route Start Last Admin Trade Name Freq PRN Reason Stop Dose Admin Sodium Chloride 1,000 mls @ 999 mls/hr 06/11/25 08:30 09/09/25 10:14 Ns IV 06/11/25 09:30 Infused .Q1H1M JOSE DAVID Infusion Iohexol 100 ml 06/11/25 10:04 06/11/25 10:04 Iohexol 350 Mg/Ml 100 Ml Infus..Btl IV 06/11/25 10:05 85 ml ONCE ONE Administration Medical Decision Making Medical Decision Making [facility] Narrative: Patient is a 24-year-old male with reported history of autism, anxiety presenting to the emergency department with multiple complaints including left upper quadrant abdominal pain, epigastric burning, left arm pain. On exam patient is awake, A+Ox3, VS WNL, afebrile, normal neurological exam without focal deficits, physical exam findings as above. Given reported symptoms and physical exam findings, initial differential includes but is not limited to GERD, PUD, gastritis, T2DM, electrolyte abnormality, anxiety. Less likely pancreatitis, however, given that this is patient's second visit, will obtain CT A/P. Labs notable for no leukocytosis, no anemia, mildly elevated glucose at 190, hemoglobin A1c 6.2, mildly elevated ALT, TSH normal. CT notable for small fat-containing umbilical hernia, probable mild hepatic steatosis. My interpretation is in agreement with the radiologist's interpretation. Results discussed with patient and all questions answered. Will refer to GI for further eval, will send rx for sucralfate, and return precautions discussed. Will also provide patient with PCP referrals as well. Patient verbalized understanding of and agreement with plan. Differential Diagnosis Differential Diagnoses: The differential diagnosis associated with the presentation includes As per [facility] Admission/Observation Consideration of admission/observation: Escalation of care including admission/observation considered Patient would have been admitted to the hospital had their clinical presentation warranted hospital admission. Lab Data [facility] Lab Attestation statement: I reviewed the patient's lab results. As per [facility] 06/11/25 07:36 06/11/25 07:36 Labs: Lab Results 06/11/25 Range/Units 07:36 WBC 9.0 (4.8-10.8) X10*3/uL RBC 4.91 (4.60-5.80) X10*6/uL Hgb 15.0 (14.0-18.0) g/dl Hct 41.9 L (42.0-52.0) % MCV 85.3 (80.0-98.0) fL MCH 30.5 (27.0-33.0) pg MCHC 35.8 (31.0-36.0) g/dl RDW 12.2 (11.0-16.0) % Plt Count 263 (160-400) X10*3/uL MPV 9.0 L (9.4-12.4) fL Immature Gran % (Auto) 0.4 (0.0-0.4) % Neut % (Auto) 47.1 (45-73) % Lymph % (Auto) 39.8 (20-40) % [place] % (Auto) 10.5 (2-11) % Eos % (Auto) 1.9 (0-4) % Baso % (Auto) 0.3 (0-2) % Lymph # (Auto) 3.6 (1.2-4.9) X10*3/uL [place] # (Auto) 1.0 (0.1-1.2) X10*3/uL Eos # (Auto) 0.2 (0.0-0.4) X10*3/uL Baso # (Auto) 0.0 (0.0-0.2) X10*3/uL Abs Immat Gran (auto) 0.04 H (0.00-0.03) X10*3/uL Absolute Neuts (auto) 4.3 (2.0-8.3) x10*3/uL Absolute Nucleated RBC 0.000 (0.0-0.012) X10*3/uL Nucleated RBC % (auto) 0.0 (0.0-0.2) /100WBC Sodium 140 (135-145) mmol/L Potassium 3.9 (3.3-5.1) mmol/L Chloride 107 (96-108) mmol/L Carbon Dioxide 25 (22-29) mmol/L Anion Gap 12 (12-20) BUN 15 (9-16) mg/dL Creatinine 0.87 (0.5-1.4) mg/dL Estim Creat Clear Calc 185.6 Estimated GFR > 60 Random Glucose 190 H (60-115) mg/dL Estimat Average Glucose 131 mg/dL Hemoglobin A1c % 6.2 H (<6.0) % Calcium 9.1 (8.4-10.2) mg/dL Total Bilirubin 0.3 (0.0-1.0) mg/dL AST 34 (5-37) U/L ALT 77 H (0-40) U/L Alkaline Phosphatase 73 (39-117) U/L Total Protein 7.1 (6.5-8.0) g/dL Albumin 4.5 (3.5-5.0) g/dL TSH 3.65 (0.32-4.0) uIU/mL Independent Interpretation I performed an independent interpretation of an: CT Scan Interpretation: CT notable for small fat-containing umbilical hernia, probable mild hepatic steatosis. Radiology Impression Discussion of test interpretation with radiology: I have reviewed the radiologist's reading. External Record Review External record reviewed: Inpatient record, Office record and Outpatient record Prescription Management I considered prescription management with: Other Discharge Plan Discharge Clinical Impression: Abdominal pain Qualifiers: Abdominal location: left upper quadrant Qualified Code(s): R10.12 - Left upper quadrant pain Patient Disposition: Home, Self-Care Instructions: Abdominal Pain (ED), Upper Endoscopy (DC) Additional Instructions: You have been evaluated in the emergency department today for abdominal pain. Your evaluation did not show evidence of medical conditions requiring emergent intervention at this time, however, you are being referred to the hatchery attendant for further evaluation of your symptoms. You are being prescribed a medication called sucralfate, take this as prescribed. Please continue to establish care with a primary care physician. Return to the emergency department if you experience worsening or uncontrolled pain, fevers 100.4? F or greater, recurrent vomiting, inability to tolerate food or fluids by mouth, bloody stools or vomit, black or tarry stools, or any other concerning symptoms. Prescriptions: New sucralfate 1 gram tablet 1 g PO TID Qty: 21 0RF Rx Instructions: Take 30 minutes prior to eating. No Action amoxicillin 500 mg tablet 500 mg PO BID Qty: 14 0RF clindamycin HCl 300 mg capsule 300 mg PO Q6H 10 Days Qty: 40 0RF oxycodone 5 mg tablet 5 mg PO Q6H PRN (Reason: severe pain (scale score 7-10)) Qty: 6 0RF Rx Instructions: Partial Fill upon patient request. ibuprofen 600 mg tablet 600 mg PO Q8H PRN (Reason: pain) Qty: 30 0RF cyclobenzaprine 10 mg tablet 10 mg PO TID PRN (Reason: muscle spasm) Qty: 10 0RF Referrals: [facility] [Provider Group, Gastroenterology] Referral Note: LUQ pain for mos, no acute findings on CT A/P Clinical Impression: Abdominal pain [facility], Leia [Provider Group, Internal Medicine] [facility], Jovi [Provider Group, Internal Medicine] [facility] [Provider Group, Family Practice] Print Language: Greek
[2025-06-11 07:41] LABS: MANUAL DIFF FLAG NO
[2025-06-11 07:42] LABS: Hematocrit 41.9 % (42.0-52.0); Hemoglobin 15.0 g/dl (14.0-18.0); Imm Gran Abs Auto 0.04 X10*3/uL (0.00-0.03); Imm Gran Pct Auto 0.4 % (0.0-0.4); Lymphocytes Absolute Auto 3.6 X10*3/uL (1.2-4.9); Mean Corpuscular HGB Conc 35.8 g/dl (31.0-36.0); Mean Corpuscular Hemoglobin 30.5 pg (27.0-33.0); Mean Corpuscular Volume 85.3 fL (80.0-98.0); NRBC Abs Auto 0.000 X10*3/uL (0.0-0.012); NRBC Pct Auto 0.0 /100WBC (0.0-0.2); Platelet Count 263 X10*3/uL (160-400); Red Blood Count 4.91 X10*6/uL (4.60-5.80); White Blood Count 9.0 X10*3/uL (4.8-10.8)
[2025-06-11 07:50] LABS: Hemoglobin A1C 169.3149 umol/L; Total Hemoglobin (HGBA1C) 3859.1960 umol/L
[2025-06-11 07:57] LABS: Alanine Aminotransferase 77 U/L (0-40); Albumin Level 4.5 g/dL (3.5-5.0); Alkaline Phosphatase 73 U/L (39-117); Anion Gap 12 (12-20); Aspartate Amino Transferase 34 U/L (5-37); Blood Urea Nitrogen 15 mg/dL (9-16); Calcium 9.1 mg/dL (8.4-10.2); Carbon Dioxide 25 mmol/L (22-29); Chloride 107 mmol/L (96-108); Creatinine Clr Calc Pharmacy 185.6; Estimated Glomerular Filt Rate > 60; Potassium 3.9 mmol/L (3.3-5.1); Sodium 140 mmol/L (135-145); Total Protein 7.1 g/dL (6.5-8.0)
[2025-06-11] MEDS: iohexoL 350 MG/ML 100 ML INFUS..BTL IV (10:04)
[2025-06-11 11:04] VITALS: BP 126/80; PULSE 83; RESP 18; TEMP 36.8; O2SAT 99
== END 2025-06-11 11:05 | disposition home or self-care (01) ==
PROVIDERS: Registered Nurse Emergency; Emergency Provider Emergency Medicine
DX: R10.12 Left upper quadrant pain (principal); M79.602 Pain in left arm; R10.13 Epigastric pain; R11.0 Nausea; Z79.899 Other long term (current) drug therapy; F17.210 Nicotine dependence, cigarettes, uncomplicated
CPT/HCPCS: 36415; 74177; 80053; 83036; 84443; 85025; 96360; 99283; 99285; Q9967

== ENCOUNTER → 2025-06-11 07:32 | Outpatient (BNV) | payer MEDICAID, SELFPAY | PROVIDERS: Emergency Provider Emergency Medicine; Visit Provider Radiology Diagnostic Radiology | DX: R10.812 Left upper quadrant abdominal tenderness (principal); K42.9 Umbilical hernia without obstruction or gangrene | CPT/HCPCS: 74177 ==

== ENCOUNTER 2025-06-19 20:52 | Emergency (ER) | payer MEDICAID, SELFPAY ==
--- OUTSIDE RECORDS SUMMARY | 2024-06-06 07:30 | XMS_ITS ---
Author Organization [facility] Address [address] [place] [address] Care Team Providers Care Lieutenant Firefighter Name Role Phone Amarjit Smith Primary Care Provider [phone] Alexa Valerio Unavailable [phone] REASON FOR VISIT office: f/u Medications Medication [...] Male Encounters Encounter Location Date Provider Diagnosis [address] [place] [address] 06/06/2024 Alexa Valerio Encounter for screening for [...] Notes * Calvin CARROLLDOB:2000 (24 yo M)Acc No.[id number]:06/06/2024 Progress Notes Patient: Calvin LUNA Provider: JESUS Cleveland :2000 A ge:23 Y S ex:Male Date:06/06/2024 Address:[address] [place], [place] [phone] Pcp:Amarjit Smith Subjective: * Chief Complaints: * [...] * Electronic signature of Fermín Valerio on 06/19/2025 at 09:13 PM EDT Sign off status: Pending * Provider: JESUS Cleveland Date: 06/06/2024 Generated for Aly Alcaraz/Ky on: 06/19/2025 09:13 PM EDT
--- OUTSIDE RECORDS SUMMARY | 2024-08-17 07:20 | XMS_ITS ---
Author Organization [facility] Address [address] [place] [address] Care Team Providers Care American Sign Language Teacher Name Role Phone Abbe Smithw Primary Care Provider Allergies No Known Allergies REASON FOR VISIT HUDDLE: any vax?(MIIS- Varicella-03/07/2021), VISIT: tobacco; adjustment, Symptom screening by [facility] staff pre entrance to clinic Medications Medication [...] 06/24/2022 Encounters Encounter Location Date Provider Diagnosis [facility] [address] [place] [address] 08/17/2024 Amarjit Smith Encounter for screening for [...] Notes * Calvin CARROLLDOB:2000 (24 yo M)Acc No.[id number]:08/17/2024 Progress Notes Patient: Calvin LUNA Provider: Danae Smith MD :2000 A ge:24 Y S ex:Male Date:08/17/2024 Address:[address] [place] [address], [facility] [place] [place], [phone] Subjective: * Chief Complaints: * 1 . HUDDLE: any vax?(MIIS- Varicella-03/07/2021). 2. VISIT: tobacco; adjustment. 3. Symptom screening by [facility] staff pre entrance to clinic. * HPI: [...] had not arrived for 11:20 appt Calling [phone]. No answer. not set up yet. * [...] history. * Hospitalization/Major Diagno stic Procedure: M [facility] - psych admits as a young teen, N Respite see [facility] , ER visits for CP and anxiety 02/22. * Family History: M other: alive, unknown age. F ather: alive, unknown age, alcohol abuse. D aughter(s): alive 1 yr. 1 brother(s) , 1 sister(s) - healthy. 1 daughter(s) . . Daughter Spina Bifida. * Social History: H ousing/living arrangements: 12/23: Housed on spring through Staying out in a tent in [place]. S [facility] Screening Entered Date 0 03/11/2023 How is this screening being conducted today? I n-person What is your housing situation today? 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 S marilu Last grade completed 1 2 Reading/Writing competent L iterate W ork Hx: 06/24 Last worked early 2021 at [employer]. I ncome: 06/24 No income. L egal issues/Incarcerations: 06/24 Probation. P CP/last visit: 06/04 Unable to answer when he last saw a pcp. Thinks he saw a provider in [place]?. T ransportation: 06/24 Bike or walk. M [...] Denies. S ocial hx: 06/24 Born in [place] [place] [facility], raised in [place]. Lived with mother and sibilings until 11 or 12 he was placed in [facility] custody. * Medications: T aking BUPROPION HYDROCHLORIDE [...] Electronic signature of Carline Smith MD on 06/19/2025 at 09:13 PM EDT Sign off status: Pending * Provider: Danae Smith MD Date: 10/17/2023 Generated for Aly engel/Constance/Ky on: 0 06/19/2025 09:13 PM EDT
--- OUTSIDE RECORDS SUMMARY | 2025-06-15 17:00 | XMS_ITS ---
Author Organization [facility] Address [address] [place] [address] Care Team Providers Care Assistant Superintendent Name Role Phone Amarjit Smith Primary Care Provider Migration, Provider Unavailable Unavailable REASON FOR VISIT [facility] Encounter Medications Medication SIG (Take, Route, [...] Male Encounters Encounter Location Date Provider Diagnosis [facility] [address] [place] [address] 06/15/2025 Provider Migration Plan Of Treatment No Information Progress Notes * Calvin CARROLLDOB:2000 (24 yo M)Acc No.[id number]:06/15/2025 Patient: Calvin LUNA Provider: :2000 A ge:24 Y S ex:Male Date:06/15/2025 Address:[address] [place] [address], [facility] [address], [id number] Pcp:Amarjit Smith Subjective: * Chief Complaints: * [...] Electronic signature of Prov ider Migration on 06/19/2025 at 09:14 PM EDT Sign off status: Pending * Provider: Date: 06/15/2025 Generated for Aly engel/Constance/Ky on: 06/19/2025 09:14 PM EDT
--- NOTE | ~2025-06-19 | XR_ITS ---
CLINICAL HISTORY: SOB Chest X-ray, 2 Views COMPARISON: CR/SR - XR CHEST 2 VIEWS - 04/10/25 11:06 EDT FINDINGS: No consolidation. No pleural effusion. No pneumothorax. No cardiomegaly. No acute fracture. IMPRESSION: No acute findings. This document has been electronically signed by: Raul Montanez MD on 06/19/2025 23:48:22
--- NOTE | 2025-06-19 20:54 | ECG_ITS ---
Test Reason : CP Blood Pressure : */* mmHG Vent. Rate : 101 BPM Atrial Rate : 101 BPM P-R Int : 128 ms QRS Dur : 86 ms QT Int : 344 ms P-R-T Axes : 55 103 59 degrees QTcB Int : 446 ms Sinus tachycardia Rightward axis Borderline ECG When compared with ECG of 10-Apr-2025 06:17, No significant change was found Referred By: Generic ED Physician Electronically Signed By: ANISHA KELLY
[2025-06-19 21:04] VITALS: BP 160/101; PULSE 99; RESP 14; TEMP 36.9; O2SAT 97; BMI 35.1
[2025-06-19 21:07] LABS: MANUAL DIFF FLAG NO
[2025-06-19 21:08] LABS: Hematocrit 42.7 % (42.0-52.0); Hemoglobin 15.4 g/dl (14.0-18.0); Imm Gran Abs Auto 0.02 X10*3/uL (0.00-0.03); Imm Gran Pct Auto 0.3 % (0.0-0.4); Lymphocytes Absolute Auto 2.6 X10*3/uL (1.2-4.9); Mean Corpuscular HGB Conc 36.1 g/dl (31.0-36.0); Mean Corpuscular Hemoglobin 30.8 pg (27.0-33.0); Mean Corpuscular Volume 85.4 fL (80.0-98.0); NRBC Abs Auto 0.000 X10*3/uL (0.0-0.012); NRBC Pct Auto 0.0 /100WBC (0.0-0.2); Platelet Count 265 X10*3/uL (160-400); Red Blood Count 5.00 X10*6/uL (4.60-5.80); White Blood Count 7.6 X10*3/uL (4.8-10.8)
[2025-06-19 21:10] VITALS: BP 145/100; PULSE 101; RESP 28; O2SAT 96
--- OUTSIDE RECORDS SUMMARY | 2025-06-19 21:15 | XMS_ITS | Patient Health Record ---
Author Organization [facility] Address [address] [place] [address] Care Team Providers Care Postbed Stitcher Name Role Phone Amarjit Smith Primary Care Provider Migration, Provider Unavailable Unavailable Allergies No Known Allergies Reason For Referral No Information Medications Medication SIG (Take, Route, Frequency, Duration) Notes Start Date End Date Status Abilify 10 MG 1 tab(s) orally once a day for 30 days Active buPROPion HCl ER (XL) 150 MG 1 tab(s) orally every 24 hours for 30 days Active cloNIDine HCl 0.1 [...] unspecified (F14.129) Active confirmed Problem Tobacco user (135674272) Nicotine dependence, cigarettes, uncomplicated (F17.210) Active confirmed Problem Recurrent major depression in remission (82399246) Major depressive disorder, recurrent, in partial remission (F33.41) Active confirmed Problem Generalized anxiety disorder (74394337) Generalized anxiety disorder (F41.1) Active confirmed Problem Pervasive developmental disorder (disorder) (18330939) Autistic disorder (F84.0) Active confirmed Problem Attention deficit hyperactivity disorder, predominantly inattentive type (36080846) Attention-deficit hyperactivity disorder, predominantly inattentive type (F90.0) Active confirmed Problem Functional dyspepsia (8696376) Functional dyspepsia (K30) Active confirmed Problem Depression Screening (954359791) Encounter for screening for depression (Z13.31) Active confirmed Problem Body mass index 20-24 - normal (581798624) Body mass index [BMI] 22.0-22.9, adult (Z68.22) Active confirmed Problem Unsheltered homelessness (832946261127480) Unsheltered homelessness (Z59.02) Active confirmed Encounters Encounter Location Date Provider Diagnosis [facility] [address] [place] [address] 06/15/2025 Provider Migration [facility] [address] [place] [address] 08/17/2024 Amarjit Smith Assessments Encounter Date Diagnosis (ICD Code) Assessment Notes Treatment Notes Treatment Clinical Notes Section Notes 08/17/2024 Other Plan Of Treatment No Information Insurance Providers Payer Name Payer Address Payer Phone Subscriber Number Group Number Insured Name Patient Relationship to Insured Coverage Start Date Coverage End Date [place] Medicaid C3 [address] [place], [place] [id number] [phone] [id number] Calvin Barr Self - patient is the insured 2 [place] [employer] [address] [place] [address] [id number] MomoCalvin Self - patient is the insured 03/19/202 2 Medical (General) History Medical History History ICD Code Depression vs other Mood Disorder Anxiety Autism Cocaine abuse history Hospitalization History Reason Date(Month/Year) ER visits for CP and anxiety 02/22 Mental health - psych admits as a young teen, [facility] Respite see [facility] Hx
[2025-06-19 21:26] LABS: Alanine Aminotransferase 68 U/L (0-40); Albumin Level 4.9 g/dL (3.5-5.0); Alkaline Phosphatase 70 U/L (39-117); Anion Gap 11 (12-20); Aspartate Amino Transferase 33 U/L (5-37); Blood Urea Nitrogen 15 mg/dL (9-16); Calcium 9.0 mg/dL (8.4-10.2); Carbon Dioxide 28 mmol/L (22-29); Chloride 105 mmol/L (96-108); Creatinine Clr Calc Pharmacy 173.2; Estimated Glomerular Filt Rate > 60; Potassium 4.1 mmol/L (3.3-5.1); Sodium 140 mmol/L (135-145); Total Protein 7.7 g/dL (6.5-8.0)
[2025-06-19 21:35] LABS: Troponin-I High Sensitivity < 2.7 ng/L (<3.5-35.0)
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
[2025-06-20 00:08] LABS: D Dimer High Sensitivity < 150 NG/ML
[2025-06-20 00:47] VITALS: BP 152/96; PULSE 99; RESP 16; TEMP 37.1; O2SAT 95
[2025-06-20 00:56] VITALS: BP 152/96; PULSE 99; RESP 16; TEMP 37.1; O2SAT 95
== END 2025-06-20 00:58 | disposition home or self-care (01) ==
PROVIDERS: Physician Assistant; Emergency Provider Student in an Organized Health Care Education/Training Program; PCP Dentist General Practice
DX: R07.89 Other chest pain (principal); R06.02 Shortness of breath; R11.0 Nausea; R00.2 Palpitations; R00.0 Tachycardia, unspecified; F17.210 Nicotine dependence, cigarettes, uncomplicated
CPT/HCPCS: 36415; 71046; 80053; 84443; 84484; 85025; 85379; 93005; 99283; 99284

== ENCOUNTER → 2025-06-19 20:54 | Outpatient (BNV) | payer MEDICAID, SELFPAY | PROVIDERS: Emergency Provider Student in an Organized Health Care Education/Training Program; PCP Dentist General Practice; Visit Provider Internal Medicine | DX: R00.0 Tachycardia, unspecified (principal) | CPT/HCPCS: 93010 ==

== ENCOUNTER → 2025-06-19 23:23 | Outpatient (BNV) | payer MEDICAID, SELFPAY | PROVIDERS: Emergency Provider Student in an Organized Health Care Education/Training Program; PCP Dentist General Practice; Visit Provider Radiology Diagnostic Radiology | DX: R06.02 Shortness of breath (principal) | CPT/HCPCS: 71046 ==

== ENCOUNTER 2025-08-24 02:44 | Emergency (ER) | payer MEDICAID, SELFPAY ==
--- OUTSIDE RECORDS SUMMARY | 2024-06-06 06:30 | XMS_ITS ---
Author Organization [facility] Address [address] [place] [address] Care Team Providers Care Mine Wedge Sawyer Name Role Phone Amarjit Smith Primary Care Provider Alexa Valerio Unavailable [phone] REASON FOR VISIT office: f/u Medications Medication SIG (Take, Route, Frequency, Duration) Notes Start Date End Date Status OMEPRAZOLE 40 mg 1 cap(s) orally once a day for 30 days Active HYDROXYZINE pamoate 50 mg 1 cap(s) orall y 3 times a day as needed for anxiety for 30 days Active ABILIFY 10 mg 1 tab(s) orally once a day for 30 days Active ATOMOXETINE HYDROCHLORIDE 40 mg 1 cap(s) orally once a day (in the morning) for ADHD for 30 days Active BUPROPION HYDROCHLORIDE XL 150 mg/24 hours 1 tab(s) orally every 24 hours for 30 days Active CLONIDINE 0.1 mg 1 tab(s) orally once a day (at bedtime) for 30 days Active Social History Sex Assigned At : Social History Observation Description Sex Assigned At Male Encounters Encounter Location Date Provider Diagnosis [address] [place] [address] 06/06/2024 Alexa Valerio Encounter for screening for COVID-19 Z11.52 Assessments Encounter Date Diagnosis (ICD Code) Assessment Notes Treatment Notes Treatment Clinical Notes Section Notes 06/06/2024 Encounter for screening for COVID-19 (ICD-10 - Z11.52) Covid screening is negative. Discussed in detail with patient how to practice social distancing by avoiding public spaces and crowds now, wearing a mask in public to keep nose and mouth covered, and washing hands frequently especially before eating and after using the bathroom. Return to clinic if you develop any symtpoms of concern to be rescreened or go to the emergency room if you are having concerning symptoms for COVID-19. 06/06/2024 Other Plan Of Treatment Treatment Notes Assessment Notes Encounter for screening for COVID-19 Cov id screening is negative. Discussed in detail with patient how to practice social distancing by avoiding public spaces and crowds now, wearing a mask in public to keep nose and mouth covered, and washing hands frequently especially before eating and after using the bathroom. Return to clinic if you develop any symtpoms of concern to be rescreened or go to the emergency room if you are having concerning symptoms for COVID-19. Progress Notes * Calvin CARROLLDOB:2000 (25 yo M)Acc No.[id number]:06/06/2024 Progress Notes Patient: Calvin LUNA Provider: JEUSS Cleveland :2000 A ge:23 Y S ex:Male Date:06/06/2024 Address:[address] [place], [place] [phone] Pcp:Amarjit Smith Subjective: * Chief Complaints: * 1 . Office: f/u. * HPI: G eneral: Symptom Screen: - Fever in the last 1 week? Patient denies - New or worsening cough in the last 1 week? Patient denies. - Contact will known COVID exposure in last 5 days? Patient denies -new rash within last 3 weeks? Patient denies RN/MA: - Have you received the COVID-19 vaccine? - Have you received COVID-19 booster? - Have you been tested positive for COVID -19 in the last 7 days? If so where and why?. * ROS: N o acute C/P no acute SOB, No problem with urine, No heartburn or abdominal pain. Endorses being able to climb one fight of stairs without stopping due to SOB, Mood: stable, appetite: good, sleeping well. Denies new skin rashes. * Medical History: * Medications: T aking BUPROPION HYDROCHLORIDE XL 150 mg/24 hours tablet, extended release 1 tab(s) orally every 24 hours , Taking ATOMOXETINE HYDROCHLORIDE 40 mg capsule 1 cap(s) orally once a day (in the morning) for ADHD , Taking ABILIFY 10 mg tablet 1 tab(s) orally once a day , Taking CLONIDINE 0.1 mg tablet 1 tab(s) orally once a day (at bedtime) , Taking HYDROXYZINE pamoate 50 mg capsule 1 cap(s) orally 3 times a day as needed for anxiety , Taking OMEPRAZOLE 40 mg delayed release capsule 1 cap(s) orally once a day Objective: * Vitals: Assessment: * Assessment: 1. E ncounter for screening for COVID-19 - Z11.52 (Primary) Plan: * Treatment: * Images: Billing Information: * Visit Code: * Procedure Codes: Care Plan Details* * Electronic signature of Fermín Valerio on 08/24/2025 at 03:28 AM EST Sign off status: Pending * Provider: JESUS Cleveland Date: 0 06/06/2024 Generated for Aly Alcaraz/Ky on: 10/24/2024 03:28 AM EST
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
--- OUTSIDE RECORDS SUMMARY | 2025-06-15 16:00 | XMS_ITS ---
Author Organization [facility] Address [address] [place] [address] Care Team Providers Care Electromechanical Technologist Name Role Phone Amarjit Smith Primary Care Provider [phone] Migration, Provider Unavailable Unavailable REASON FOR VISIT [facility] Encounter Medications Medication SIG (Take, Route, Frequency, Duration) Notes Start Date End Date Status Abilify 10 MG 1 tab(s) orally once a day for 30 days Active cloNIDine HCl 0.1 MG 1 tab(s) orally once a day (at bedtime) for 30 days Active hydrOXYzine Pamoate 50 MG 1 cap(s) orally 3 times a day as needed for anxiety for 30 days Active ATOMOXETINE HYDROCHLORIDE 40 MG 1 CAP(S) ORALLY ONCE A DAY (IN THE MORNING) FOR ADHD for 30 DAYS *Please review for potential replacement for e-prescription and drug interaction check* Active Omeprazole 40 MG 1 cap(s) orally once a day for 30 days Active buPROPion HCl ER (XL) 150 MG 1 tab(s) orally every 24 hours for 30 days Active Social History Sex Assigned At : Social History Observation Description Sex Assigned At Male Encounters Encounter Location Date Provider Diagnosis [facility] [address] [place] [address] 06/15/2025 Provider Migration Plan Of Treatment No Information Progress Notes * Calvin CARROLLDOB:2000 (25 yo M)Acc No.[id number]:06/15/2025 Patient: Calvin LUNA Provider: :2000 A ge:24 Y S ex:Male Date:06/15/2025 Address:[address] [place] [address], [facility] [address] [id number] Pcp:Amarjit Smith Subjective: * Chief Complaints: * 1 . [facility] To [facility] Conversion Encounter. * Medical History: * Medications: T aking Abilify 10 MG Tablet 1 tab(s) orally once a day , Taking buPROPion HCl ER (XL) 150 MG Tablet Extended Release 24 Hour 1 tab(s) orally every 24 hours , Taking ATOMOXETINE HYDROCHLORIDE 40 MG CAPSULE 1 CAP(S) ORALLY ONCE A DAY (IN THE MORNING) FOR ADHD , Notes to Pharmacist: *Please review for potential replacement for e-prescription and drug interaction check*, Taking Abilify 10 MG Tablet 1 tab(s) orally once a day , Taking cloNIDine HCl 0.1 MG Tablet 1 tab(s) orally once a day (at bedtime) , Taking hydrOXYzine Pamoate 50 MG Capsule 1 cap(s) orally 3 times a day as needed for anxiety , Taking Omeprazole 40 MG Capsule Delayed Release 1 cap(s) orally once a day Objective: * Vitals: Assessment: Plan: * Treatment: * Images: Billing Information: * Visit Code: * Procedure Codes: * Electronic signature of Prov ider Migration on 08/24/2025 at 03:28 AM EST Sign off status: Pending * Provider: Date: 0 06/15/2025 Generated for Aly engel/Constance/Ky on: 10/24/2024 03:28 AM EST
--- NOTE | ~2025-08-24 | CT_ITS ---
CLINICAL HISTORY: Headache [address] head without contrast Comparison: CT/TX/SR - CT HEAD/BRAIN WO IV CON - 01/23/25 10:00 EDT Findings: No intra-axial mass, midline shift, hydrocephalus, or acute hemorrhage. No significant atrophy-like change or white matter disease. There is no sinus or mastoid fluid. The orbits are within normal limits. No skull fracture. IMPRESSION: 1. No acute intracranial findings. This document has been electronically signed by: Dre Simmons MD on 08/24/2025 04:27:37
[2025-08-24 03:07] VITALS: BP 145/78; PULSE 98; RESP 18; TEMP 36.7; O2SAT 99; BMI 35.9
--- OUTSIDE RECORDS SUMMARY | 2025-08-24 03:29 | XMS_ITS | Patient Health Record ---
Author Organization [facility] Address [address] [place] [address] Care Team Providers Care Hand Heel Seat Fitter Name Role Phone Amarjit Smith Primary Care [...] unspecified (F14.129) Active confirmed Problem Tobacco user (269140635) Nicotine dependence, cigarettes, uncomplicated (F17.210) Active confirmed Problem Recurrent major depression in remission (06329401) Major depressive disorder, recurrent, in partial remission (F33.41) Active confirmed Problem Generalized anxiety disorder (10133941) Generalized anxiety disorder (F41.1) Active confirmed Problem Pervasive developmental disorder (disorder) (66561579) Autistic disorder (F84.0) Active confirmed Problem Attention deficit hyperactivity disorder, predominantly inattentive type (63315222) Attention-deficit hyperactivity disorder, predominantly inattentive type (F90.0) Active confirmed Problem Functional dyspepsia (2033741) Functional dyspepsia (K30) Active confirmed Problem Depression Screening (658250483) Encounter for screening for depression (Z13.31) Active confirmed Problem Body mass index 20-24 - normal (147645608) Body mass index [BMI] 22.0-22.9, adult (Z68.22) Active confirmed Problem Unsheltered homelessness (589902562960826) Unsheltered homelessness (Z59.02) Active confirmed Encounters Encounter Location Date Provider Diagnosis [facility] [address] [place] [address] 06/15/2025 Provider Migration Plan Of Treatment No Information Insurance Providers Payer Name Payer Address Payer Phone Subscriber Number Group Number Insured Name Patient Relationship to Insured Coverage Start Date Coverage End Date [place] C3 [address] [place], [place] [id number] Calvin Barr Self - patient is the insured 2 [place] [employer] [address] [place] [address] [id number] Calvin Barr Self - patient is the insured 2 Medical (General) History Medical History History ICD Code Depression vs other Mood Disorder Anxiety Autism Cocaine abuse history Hospitalization History Reason Date(Month/Year) ER visits for CP and anxiety 02/22 Mental health - psych admits as a young teen, [facility] see Hx
--- NOTE | 2025-08-24 03:34 | ECG_ITS ---
Test Reason : JAW PAIN Blood Pressure : */* mmHG Vent. Rate : 86 BPM Atrial Rate : 86 BPM P-R Int : 148 ms QRS Dur : 84 ms QT Int : 370 ms P-R-T Axes : 40 69 56 degrees QTcB Int : 442 ms Normal sinus rhythm Normal ECG When compared with ECG of 19-Jun-2025 20:57, No significant change was found Referred By: Kathie Krishna Electronically Signed By: ANISHA KELLY
--- NOTE | 2025-08-24 03:37 | ED_ITS ---
HPI - General Adult General Chief complaint: Headache Stated complaint: Dental Pain Time Seen by Provider: 08/24/25 03:26 Source: patient Mode of arrival: ambulatory Limitations: no limitations History of Present Illness ED Provider: Dr. Kathie Krishna HPI narrative: Patient comes to the emergency room complaining of multiple chronic complaints complaints including headache, jaw pain, chronic dental pain but states that his dentist is already a dressing his dental issues, also complaining of left arm redness without pain, complaining of chronic nausea without vomiting or diarrhea. Patient also complaining of chronic dysuria, complaining of a chronic internal heat sensation throughout the body without fever. Patient denies SI or HI Related Data Previous Rx's ?Medication ?Instructions ?Recorded amoxicillin 500 mg tablet 500 mg PO BID #14 tabs 12/06 ibuprofen 600 mg tablet 600 mg PO Q8H PRN pain #30 t abs 01/27/25 clindamycin HCl 300 mg capsule 300 mg PO Q6H 10 days # 40 caps 02/09/25 oxycodone 5 mg tablet 5 mg PO Q6H PRN severe pain (scale 02/09/25 score 7-10) #6 tabs cyclobenzaprine 10 mg tablet 10 mg PO TID PRN muscle s pasm #10 04/10/25 tabs sucralfate 1 gram tablet 1 g PO TID #21 tabs 06/11/25 Allergies Allergy/AdvReac Type Severity Reaction Status Date / Time No Known Allergies (No Known Allergy Verified 08/24/25 03:09 Allergies*) Review of Systems 2 Review of Systems: Constitutional : No Weight loss, No Fever, No Chills, No Night Sweats, No Fatigue, No Malaise ENT/Mouth : Complaining of chronic dental pain issues which are already being addressed by the dentist, complaining of chronic jaw pain, No Hearing loss, No Ear Pain, No Nasal Congestion, No Sinus Pain, No Hoarseness, No sore throat, No Rhinorrhea, No Swallowing Difficulty Eyes: No Eye Pain, No Swelling, No Redness, No Foreign Body, No Discharge, No Vision Changes Cardiovascular : No Chest Pain, No SOB, No Dyspnea on Exertion, No Orthopnea, No Edema, No Palpitations Respiratory : No Cough, No Sputum, No Wheezing, No Smoke Exposure, No Dyspnea Gastrointestinal : No Nausea, No Vomiting, No Diarrhea, No Constipation, No abdominal Pain, No Hematochezia, No Melena Genitourinary : Complaining of chronic dysuria No Urinary Frequency, No Hematuria, No Urinary Incontinence, No Urgency, No Flank Pain, No Urinary Flow Changes, No Hesitancy Musculoskeletal : No joint pain, No Myalgias, No Joint Swelling Skin : No Skin Lesions, No rash Neuro : No Weakness, No Numbness, No Paresthesias, No Loss of Consciousness, No Dizziness, complaining of 3 weeks of Headache Psych : No Anxiety/Panic, No Depression, No SI/HI/AH/VH, No Social Issues, Heme/Lymph: No Bruising, No Bleeding,No Lymphadenopathy Endocrine : No Polyuria, No Polydipsia, No Temperature Intolerance [facility] Past Medical History Medical History Anxiety Social History Social History Patient Tobacco Use Status: Current everyday Tobacco user Advance Directives: No Advance Directives Information Provided: No Do you have a plan to hurt others: No Plan Physical Exam ED Exam Exam: Appearance: Alert. Oriented X3. No acute distress. Eyes: Pupils equal, round and reactive to light. ENT: Pharynx normal. There is no swelling Neck: Normal inspection. Neck supple. No lymph nodes noted. No crepitus CVS: Normal heart rate and rhythm. Pulses normal. Normal S1 and S2 Respiratory: No respiratory distress. Breath sounds normal. No Wheezing. No rales Abdomen: Soft and nontender. No rigidity. No distention. Skin: Skin warm and dry. Normal skin color. Normal skin turgor. Extremities: No lower extremity edema. No Lacerations. No Rash Neuro: Oriented X 3. No motor deficit. No sensory deficit. Moving all extremities. No slurred speech. CN 2 through 12 grossly intact Psych: calm, cooperative, seems a bit anxious Vital Signs: Vital Signs - 24 hr 08/24/25 03:07 Temperature 98.0 F Pulse Rate 98 Respiratory Rate 18 Blood Pressure 145/78 H Pulse Oximetry 99 Oxygen Delivery Method Room Air BMI result Body Mass Index 35.9 Course Course Course Narrative: Seems that from all chronic complaints that the patient has, today's main complaint is the headache which has been present for about 3 weeks. I discussed with the patient that we will to lab work and also head CT. Also, we will need urinalysis to rule out UTI/pyelonephritis Patient agrees with plan Medical Decision Making Medical Decision Making MDM Narrative: My interpretation of labs: No significant abnormality in patient's hematology normal chemistry, normal LFTs, with ENT slightly increased with chronic and at baseline. Urinalysis negative for UTI, urine toxicology negative, ETOH negative CT scan of the head negative Discussed with the patient that he needs to follow-up with his PCP Differential Diagnosis Differential Diagnoses: The differential diagnosis associated with the presentation includes (Anxiety, viral syndrome, migraine headache, UTI) Admission/Observation Consideration of admission/observation: Escalation of care including admission/observation considered (Given patient's multiple complaints, observation was considered) Lab Data [facility] Lab Attestation statement: I reviewed the patient's lab results. 08/24/25 03:41 08/24/25 03:41 Labs: Lab Results 08/24/25 08/24/25 Range/Units 03:41 04:05 WBC 8.6 (4.8-10.8) X10*3/uL RBC 4.85 (4.60-5.80) X10*6/uL Hgb 14.5 (14.0-18.0) g/dl Hct 41.5 L (42.0-52.0) % MCV 85.6 (80.0-98.0) fL MCH 29.9 (27.0-33.0) pg MCHC 34.9 (31.0-36.0) g/dl RDW 12.6 (11.0-16.0) % Plt Count 262 (160-400) X10*3/uL MPV 8.8 L (9.4-12.4) fL Immature Gran % (Auto) 0.3 (0.0-0.4) % Neut % (Auto) 42.9 L (45-73) % Lymph % (Auto) 43.8 H (20-40) % [place] % (Auto) 11.0 (2-11) % Eos % (Auto) 1.5 (0-4) % Baso % (Auto) 0.5 (0-2) % Lymph # (Auto) 3.8 (1.2-4.9) X10*3/uL [place] # (Auto) 0.9 (0.1-1.2) X10*3/uL Eos # (Auto) 0.1 (0.0-0.4) X10*3/uL Baso # (Auto) 0.0 (0.0-0.2) X10*3/uL Abs Immat Gran (auto) 0.03 (0.00-0.03) X10*3/uL Absolute Neuts (auto) 3.7 (2.0-8.3) x10*3/uL Absolute Nucleated RBC 0.000 (0.0-0.012) X10*3/uL Nucleated RBC % (auto) 0.0 (0.0-0.2) /100WBC Sodium 141 (135-145) mmol/L Potassium 4.0 (3.3-5.1) mmol/L Chloride 108 (96-108) mmol/L Carbon Dioxide 24 (22-29) mmol/L Anion Gap 13 (12-20) BUN 15 (9-16) mg/dL Creatinine 0.79 (0.5-1.4) mg/dL Estim Creat Clear Calc 220.9 Estimated GFR > 60 Random Glucose 125 H (60-115) mg/dL Calcium 9.1 (8.4-10.2) mg/dL Magnesium 1.9 (1.6-2.6) mg/dL Total Bilirubin 0.5 (0.0-1.0) mg/dL AST 32 (5-37) U/L ALT 75 H (0-40) U/L Alkaline Phosphatase 68 (39-117) U/L Total Protein 7.2 (6.5-8.0) g/dL Albumin 4.7 (3.5-5.0) g/dL Urine Color Yellow Urine Appearance Clear Urine pH 6.0 (5.0-9.0) Ur Specific [place] 1.025 (1.005-1.025) Urine Protein Negative (Neg-Trace) mg/dL Urine Glucose (UA) Negative (Negative) mg/dL Urine Ketones Negative (Negative) mg/dL Urine Blood Trace H (Negative) Urine Nitrite Negative (Negative) Ur Leukocyte Esterase Negative (Negative) Urine RBC 3-5 H (0-2) /HPF Urine WBC 0-5 (0-5) /HPF Ur Squamous Epith Cells 0-2 (0-2) /HPF Urine Bacteria None Seen (None Seen) Hyaline Casts 0-2 (0-2) /LPF Urine Opiates Screen Not Detected (Not Detect) Ur Buprenorphine Scrn Not Detected (Not Detect) ng/mL Ur Oxycodone Screen Not Detected (Not Detect) ng/mL Urine Methadone Screen Not Detected (Not Detect) ng/mL Urine Fentanyl Screen Not Detected (Not Detect) Ur Barbiturates Screen Not Detected (Not Detect) Ur Phencyclidine Scrn Not Detected (Not Detect) Ur Amphetamines Screen Not Detected (Not Detect) U Benzodiazepines Scrn Not Detected (Not Detect) Urine Cocaine Screen Not Detected (Not Detect) U Marijuana (THC) Screen Not Detected (Not Detect) Ethyl Alcohol < 10 mg/dL Independent Interpretation I performed an independent interpretation of an: EKG (My interpretation of EKG: Normal sinus rhythm, heart rate 86, no ST segment depression or elevation, no T- wave inversion, QTC 442) and CT Scan Radiology Impression Discussion of test interpretation with radiology: I have reviewed the radiologist's reading. Radiologist Impression: No intra-axial mass, midline shift, hydrocephalus, or acute hemorrhage. No significant atrophy-like change or white matter disease. There is no sinus or mastoid fluid. The orbits are within normal limits. No skull fracture. IMPRESSION: 1. No acute intracranial findings. Discharge Plan Discharge Clinical Impression: Headache, Dysuria Patient Disposition: Home, Self-Care Instructions: Acute Headache (ED), Dysuria (ED) Additional Instructions: Please follow-up with your primary care physician tomorrow. If you have any worsening or new symptoms, please return to the emergency room or call 911 Prescriptions: No Action amoxicillin 500 mg tablet 500 mg PO BID Qty: 14 0RF clindamycin HCl 300 mg capsule 300 mg PO Q6H 10 Days Qty: 40 0RF oxycodone 5 mg tablet 5 mg PO Q6H PRN (Reason: severe pain (scale score 7-10)) Qty: 6 0RF Rx Instructions: Partial Fill upon patient request. ibuprofen 600 mg tablet 600 mg PO Q8H PRN (Reason: pain) Qty: 30 0RF cyclobenzaprine 10 mg tablet 10 mg PO TID PRN (Reason: muscle spasm) Qty: 10 0RF sucralfate 1 gram tablet 1 g PO TID Qty: 21 0RF Rx Instructions: Take 30 minutes prior to eating. Print Language: Irish
[2025-08-24 03:47] LABS: Hematocrit 41.5 % (42.0-52.0); Hemoglobin 14.5 g/dl (14.0-18.0); Imm Gran Abs Auto 0.03 X10*3/uL (0.00-0.03); Imm Gran Pct Auto 0.3 % (0.0-0.4); Lymphocytes Absolute Auto 3.8 X10*3/uL (1.2-4.9); MANUAL DIFF FLAG NO; Mean Corpuscular HGB Conc 34.9 g/dl (31.0-36.0); Mean Corpuscular Hemoglobin 29.9 pg (27.0-33.0); Mean Corpuscular Volume 85.6 fL (80.0-98.0); NRBC Abs Auto 0.000 X10*3/uL (0.0-0.012); NRBC Pct Auto 0.0 /100WBC (0.0-0.2); Platelet Count 262 X10*3/uL (160-400); Red Blood Count 4.85 X10*6/uL (4.60-5.80); White Blood Count 8.6 X10*3/uL (4.8-10.8)
[2025-08-24 04:02] LABS: Alanine Aminotransferase 75 U/L (0-40); Albumin Level 4.7 g/dL (3.5-5.0); Alkaline Phosphatase 68 U/L (39-117); Anion Gap 13 (12-20); Aspartate Amino Transferase 32 U/L (5-37); Blood Urea Nitrogen 15 mg/dL (9-16); Calcium 9.1 mg/dL (8.4-10.2); Carbon Dioxide 24 mmol/L (22-29); Chloride 108 mmol/L (96-108); Creatinine Clr Calc Pharmacy 220.9; Estimated Glomerular Filt Rate > 60; Magnesium 1.9 mg/dL (1.6-2.6); Potassium 4.0 mmol/L (3.3-5.1); Sodium 141 mmol/L (135-145); Total Protein 7.2 g/dL (6.5-8.0)
[2025-08-24 04:15] LABS: Appearance Urine Clear; Glucose Urine UA Negative (Negative); PH 6.0 (5.0-9.0); Specific Gravity - Urine 1.025 (1.005-1.025); UMIC TRIGGER UACC YES
[2025-08-24 04:28] LABS: Cannabinoid Screen Urine Not Detected (Not Detect)
[2025-08-24 04:43] VITALS: BP 124/81; PULSE 75; RESP 16; TEMP 36.6; O2SAT 97
[2025-08-24 04:44] VITALS: BP 124/81; PULSE 75; RESP 16; TEMP 36.6; O2SAT 97
== END 2025-08-24 04:45 | disposition home or self-care (01) ==
PROVIDERS: Emergency Provider Emergency Medicine; PCP Dentist General Practice
DX: R51.9 Headache, unspecified (principal); R30.0 Dysuria; K08.89 Other specified disorders of teeth and supporting structures; R68.84 Jaw pain; R11.0 Nausea; F17.210 Nicotine dependence, cigarettes, uncomplicated; Z51.81 Encounter for therapeutic drug level monitoring; Z79.899 Other long term (current) drug therapy
CPT/HCPCS: 36415; 70450; 80053; 80307; 81001; 83735; 85025; 93005; 99284

== ENCOUNTER → 2025-08-24 03:34 | Outpatient (BNV) | payer MEDICAID, SELFPAY | PROVIDERS: Emergency Provider Emergency Medicine; PCP Dentist General Practice; Visit Provider Internal Medicine | DX: R68.84 Jaw pain (principal) | CPT/HCPCS: 93010 ==

== ENCOUNTER → 2025-08-24 03:35 | Outpatient (BNV) | payer MEDICAID, SELFPAY | PROVIDERS: Emergency Provider Emergency Medicine; PCP Dentist General Practice; Visit Provider Radiology Diagnostic Radiology | DX: R51.9 Headache, unspecified (principal) | CPT/HCPCS: 70450 ==